=== PATIENT | female | born 1955 | race Two or more races ===

== ENCOUNTER → 2017-03-31 | Outpatient (CLI) | payer OTHER ==
[2017-03-31 15:49] LABS: Basophils # (auto) 0.1 uL; Eosinophils # (auto) 0.1 uL; Eosinophils % (auto) 2.3 % (0.0-7.0); Hemoglobin 8.8 g/dL (12.2-16.2); White Blood Cell 5.4 10^3/uL (4.4-10.8)
[2017-03-31 15:51] LABS: Hematocrit 28.4 % (36.0-46.0); Lymphocytes # (auto) 2.2 uL; Lymphocytes % (auto) 39.6 % (10.0-50.0); Mean Corpuscular Hemoglobin 23.4 pg (28.0-32.0); Mean Corpuscular Volume 75.3 fL (80.0-100.0); Monocytes # (auto) 0.6 uL; Monocytes % (auto) 11.8 % (0.0-12.0); Neutrophils # (auto) 2.5 uL; Neutrophils % (auto) 45.3 % (37.0-80.0); Nucleated Red Blood Cells % 0.2 %; Platelet Count (auto) 310 10^3/uL (140-450); Red Blood Cells 3.78 10^6/uL (4.0-5.20); Red Cell Distribution Width 17.8 % (11.8-14.3)
== END | disposition home or self-care (01) ==
LOC: LAB 15:20
PROVIDERS: ATTEND Internal Medicine
DX: D64.9 Anemia, unspecified (principal)
CPT/HCPCS: 36415; 85025

== ENCOUNTER → 2017-04-01 | Outpatient (CLI) | payer OTHER ==
[2017-04-01 12:23] LABS: Hematocrit 30.7 % (36.0-46.0); Hemoglobin 9.5 g/dL (12.2-16.2); Mean Corpuscular Hemoglobin 23.4 pg (28.0-32.0); Mean Corpuscular Hgb Conc. 30.8 g/dL (32.0-36.0); Mean Corpuscular Volume 75.7 fL (80.0-100.0); Platelet Count (auto) 293 10^3/uL (140-450); Red Blood Cells 4.05 10^6/uL (4.0-5.20); Red Cell Distribution Width 17.8 % (11.8-14.3); White Blood Cell 5.4 10^3/uL (4.4-10.8)
[2017-04-01 12:29] LABS: Band Neutrophils % (manual) 0; Basophils % (manual) 0 (0.0-2.0); Blast Cells 0; Ferritin 5.3 ng/mL (10-322); Free T4 (Free Thyroxine) 1.35 ng/dL (0.89-1.76); Metamyelocytes % 0; Myelocytes % 0; Promyelocytes % 0; Reactive Lymphocytes 0
[2017-04-01 12:48] LABS: Albumin 3.1 g/dL (3.4-5.0); Bilirubin, Total 0.4 mg/dL (0.2-1.0); Calcium 8.4 mg/dL (8.5-10.1); Potassium 4.3 mmol/L (3.5-5.1); Total Protein 6.5 g/dL (6.4-8.2)
[2017-04-01 13:10] LABS: % Iron Saturation 3.7 % (15-50)
[2017-04-01 14:21] LABS: Eosinophils % (manual) 1 (0-7); Lymphocytes % (manual) 34 (10.0-50.0); Monocytes % (manual) 11 (0-12)
[2017-04-02 09:35] LABS: Folate (Folic Acid) 9.04 ng/mL (5.38-24)
== END | disposition home or self-care (01) ==
LOC: LAB 11:17
PROVIDERS: ATTEND Internal Medicine
DX: D64.9 Anemia, unspecified (principal); E11.9 Type 2 diabetes mellitus without complications
CPT/HCPCS: 36415; 80053; 82607; 82668; 82728; 82746; 83010; 83540; 83550; 83615; 84436; 84439; 84443; 85007; 85027; 85045; 85652; 86038; 86880

== ENCOUNTER → 2017-05-13 | Outpatient (CLI) | payer OTHER ==
[2017-05-13 14:40] LABS: Nucleated Red Blood Cells % 0.1 %
[2017-05-13 14:41] LABS: Basophils # (auto) 0 uL; Basophils % (auto) 0.8 % (0.0-2.0); Eosinophils # (auto) 0 uL; Eosinophils % (auto) 0.6 % (0.0-7.0); Hematocrit 30.6 % (36.0-46.0); Hemoglobin 9.6 g/dL (12.2-16.2); Lymphocytes # (auto) 1.8 uL; Lymphocytes % (auto) 36.3 % (10.0-50.0); Mean Corpuscular Hemoglobin 24.4 pg (28.0-32.0); Mean Corpuscular Hgb Conc. 31.4 g/dL (32.0-36.0); Mean Corpuscular Volume 77.9 fL (80.0-100.0); Monocytes # (auto) 0.5 uL; Monocytes % (auto) 9.3 % (0.0-12.0); Neutrophils # (auto) 2.6 uL; Platelet Count (auto) 243 10^3/uL (140-450); Red Blood Cells 3.93 10^6/uL (4.0-5.20); Red Cell Distribution Width 24.9 % (11.8-14.3)
[2017-05-13 15:08] LABS: % Iron Saturation 73.3 % (15-50)
== END | disposition home or self-care (01) ==
LOC: LAB 14:12
PROVIDERS: ATTEND Internal Medicine
DX: D50.9 Iron deficiency anemia, unspecified (principal)
CPT/HCPCS: 36415; 82607; 83540; 83550; 85025

== ENCOUNTER → 2017-06-10 | Outpatient (CLI) | payer OTHER ==
[2017-06-10 14:50] LABS: Basophils # (auto) 0 uL; Basophils % (auto) 0.7 % (0.0-2.0); Eosinophils # (auto) 0.1 uL; Hematocrit 36.1 % (36.0-46.0); Hemoglobin 11.6 g/dL (12.2-16.2); Lymphocytes % (auto) 36.1 % (10.0-50.0); Mean Corpuscular Hemoglobin 27.2 pg (28.0-32.0); Mean Corpuscular Hgb Conc. 32.1 g/dL (32.0-36.0); Mean Corpuscular Volume 84.8 fL (80.0-100.0); Monocytes # (auto) 0.5 uL; Monocytes % (auto) 8.6 % (0.0-12.0); Neutrophils # (auto) 2.9 uL; Neutrophils % (auto) 53.6 % (37.0-80.0); Nucleated Red Blood Cells % 0.2 %; Platelet Count (auto) 245 10^3/uL (140-450); Red Blood Cells 4.26 10^6/uL (4.0-5.20); White Blood Cell 5.4 10^3/uL (4.4-10.8)
[2017-06-10 14:51] LABS: Red Cell Distribution Width 27.2 % (11.8-14.3)
[2017-06-10 15:17] LABS: % Iron Saturation 22.4 % (15-50)
[2017-06-10 15:25] LABS: Ferritin 216.5 ng/mL (10-322)
== END | disposition home or self-care (01) ==
LOC: LAB 14:40
PROVIDERS: ATTEND Internal Medicine
DX: D50.9 Iron deficiency anemia, unspecified (principal); E11.9 Type 2 diabetes mellitus without complications
CPT/HCPCS: 36415; 82607; 82728; 83540; 83550; 85025

== ENCOUNTER → 2017-08-09 | Outpatient (CLI) | payer OTHER ==
[2017-08-09 14:04] LABS: Basophils # (auto) 0 uL; Basophils % (auto) 1.1 % (0.0-2.0); Eosinophils # (auto) 0 uL; Eosinophils % (auto) 1.1 % (0.0-7.0); Hematocrit 37.7 % (36.0-46.0); Hemoglobin 12.2 g/dL (12.2-16.2); Lymphocytes # (auto) 1.6 uL; Lymphocytes % (auto) 38.9 % (10.0-50.0); Mean Corpuscular Hemoglobin 29.8 pg (28.0-32.0); Mean Corpuscular Hgb Conc. 32.3 g/dL (32.0-36.0); Mean Corpuscular Volume 92.2 fL (80.0-100.0); Monocytes # (auto) 0.4 uL; Monocytes % (auto) 8.7 % (0.0-12.0); Neutrophils % (auto) 50.2 % (37.0-80.0); Nucleated Red Blood Cells % 0.1 %; Platelet Count (auto) 231 10^3/uL (140-450); Red Blood Cells 4.09 10^6/uL (4.0-5.20); Red Cell Distribution Width 15.7 % (11.8-14.3); White Blood Cell 4.1 10^3/uL (4.4-10.8)
[2017-08-09 15:11] LABS: % Iron Saturation 15.2 % (15-50)
== END | disposition home or self-care (01) ==
LOC: LAB 13:42
PROVIDERS: ATTEND Internal Medicine
DX: D50.9 Iron deficiency anemia, unspecified (principal); E11.9 Type 2 diabetes mellitus without complications
CPT/HCPCS: 36415; 82607; 83540; 83550; 85025

== ENCOUNTER → 2017-12-07 | Outpatient (CLI) | payer OTHER ==
[2017-12-07 09:47] LABS: Basophils # (auto) 0 uL; Basophils % (auto) 0.6 % (0.0-2.0); Eosinophils # (auto) 0 uL; Eosinophils % (auto) 0.4 % (0.0-7.0); Hematocrit 37.1 % (36.0-46.0); Hemoglobin 11.9 g/dL (12.2-16.2); Lymphocytes # (auto) 1.4 uL; Mean Corpuscular Hemoglobin 28.5 pg (28.0-32.0); Monocytes # (auto) 0.4 uL; Monocytes % (auto) 7.3 % (0.0-12.0); Neutrophils # (auto) 3.8 uL; Neutrophils % (auto) 66.7 % (37.0-80.0); Platelet Count (auto) 271 10^3/uL (140-450); Red Blood Cells 4.17 10^6/uL (4.0-5.20); White Blood Cell 5.7 10^3/uL (4.4-10.8)
[2017-12-07 10:06] LABS: Potassium 4.9 mmol/L (3.5-5.1)
[2017-12-07 10:20] LABS: Albumin 3.6 g/dL (3.4-5.0); BUN/Creatinine Ratio 23.8
[2017-12-07 10:35] LABS: Bilirubin, Total 0.5 mg/dL (0.2-1.0); Total Protein 7.2 g/dL (6.4-8.2)
[2017-12-07 19:45] LABS: % Iron Saturation 22.7 % (15-50)
== END | disposition home or self-care (01) ==
LOC: LAB 09:20
PROVIDERS: ATTEND Internal Medicine
DX: D50.9 Iron deficiency anemia, unspecified (principal)
CPT/HCPCS: 36415; 80053; 82607; 83540; 83550; 85025

== ENCOUNTER 2017-12-30 13:39 | Emergency (ER) | payer OTHER ==
[~2017-12-30] VITALS: Ht 170.2 cm; Wt 70.3 kg
[2017-12-30 14:30] VITALS: BP 141/95
[2017-12-30 14:34] LABS: Basophils # (auto) 0 uL; Basophils % (auto) 0.9 % (0.0-2.0); Eosinophils # (auto) 0 uL; Eosinophils % (auto) 0.4 % (0.0-7.0); Hematocrit 38.8 % (36.0-46.0); Hemoglobin 12.8 g/dL (12.2-16.2); Lymphocytes # (auto) 1.4 uL; Lymphocytes % (auto) 33.2 % (10.0-50.0); Mean Corpuscular Hemoglobin 28.7 pg (28.0-32.0); Mean Corpuscular Hgb Conc. 33.1 g/dL (32.0-36.0); Mean Corpuscular Volume 86.9 fL (80.0-100.0); Monocytes # (auto) 0.3 uL; Monocytes % (auto) 7.8 % (0.0-12.0); Neutrophils # (auto) 2.4 uL; Neutrophils % (auto) 57.7 % (37.0-80.0); Nucleated Red Blood Cells % 0.1 %; Platelet Count (auto) 320 10^3/uL (140-450); Red Blood Cells 4.47 10^6/uL (4.0-5.20); Red Cell Distribution Width 15.5 % (11.8-14.3); White Blood Cell 4.2 10^3/uL (4.4-10.8)
[2017-12-30 14:52] LABS: Albumin 3.8 g/dL (3.4-5.0); BUN/Creatinine Ratio 18.9; Calcium 9.4 mg/dL (8.5-10.1); Potassium 3.1 mmol/L (3.5-5.1)
[2017-12-30 14:55] LABS: Bilirubin, Total 0.9 mg/dL (0.2-1.0)
[2017-12-30] MEDS ORDERED: POTASSIUM EFFERVESENT TAB 25 MEQ ONE (15:23)
[2017-12-30] MEDS ORDERED: FLUoxetine HCL 20 MG CAP ONE (15:23)
[2017-12-30] MEDS ORDERED: FLUoxetine HCL 20 MG CAP PO ONE (15:30)
[2017-12-30] MEDS ORDERED: POTASSIUM EFFERVESENT TAB 25 MEQ PO ONE (15:30)
== END 2017-12-30 15:21 | disposition home or self-care (01) ==
LOC: ER 13:39
DX: R04.0 Epistaxis (principal); E11.9 Type 2 diabetes mellitus without complications; E07.89 Other specified disorders of thyroid; Z90.710 Acquired absence of both cervix and uterus; Z98.51 Tubal ligation status
CPT/HCPCS: 30901; 36415; 80053; 85025; 94761

== ENCOUNTER → 2018-01-19 | Outpatient (CLI) | payer OTHER ==
[2018-01-19 11:33] LABS: Basophils # (auto) 0 uL; Basophils % (auto) 0.8 % (0.0-2.0); Eosinophils # (auto) 0 uL; Eosinophils % (auto) 1.3 % (0.0-7.0); Hematocrit 35.7 % (36.0-46.0); Hemoglobin 11.3 g/dL (12.2-16.2); Lymphocytes # (auto) 1.3 uL; Lymphocytes % (auto) 44.3 % (10.0-50.0); Mean Corpuscular Hemoglobin 27.7 pg (28.0-32.0); Mean Corpuscular Hgb Conc. 31.7 g/dL (32.0-36.0); Mean Corpuscular Volume 87.3 fL (80.0-100.0); Monocytes # (auto) 0.3 uL; Neutrophils # (auto) 1.2 uL; Neutrophils % (auto) 41.6 % (37.0-80.0); Nucleated Red Blood Cells % 0.1 %; Platelet Count (auto) 268 10^3/uL (140-450); Red Blood Cells 4.09 10^6/uL (4.0-5.20); Red Cell Distribution Width 16.1 % (11.8-14.3); White Blood Cell 2.8 10^3/uL (4.4-10.8)
[2018-01-19 11:57] LABS: Urine Bacteria FEW /hpf (None Seen); Urine Blood Negative /uL (Negative); Urine Hyaline Cast FEW /lpf (0 - 2); Urine Mucus FEW (None Seen); Urine Specific Gravity 1.026 (1.001-1.035); Urine WBC 14 /hpf (0 - 5)
[2018-01-19 12:49] LABS: Albumin 3.7 g/dL (3.4-5.0); Calcium 9.5 mg/dL (8.5-10.1); Potassium 3.4 mmol/L (3.5-5.1)
[2018-01-19 13:23] LABS: BUN/Creatinine Ratio 16.3; Bilirubin, Total 0.3 mg/dL (0.2-1.0); Total Protein 7.4 g/dL (6.4-8.2)
== END | disposition home or self-care (01) ==
LOC: LAB 10:57
PROVIDERS: ATTEND Nurse Practitioner
DX: E78.5 Hyperlipidemia, unspecified (principal); E61.1 Iron deficiency; E53.8 Deficiency of other specified B group vitamins
CPT/HCPCS: 36415; 80053; 80061; 81001; 82607; 82746; 83540; 84443; 85025

== ENCOUNTER → 2018-03-08 | Outpatient (CLI) | payer OTHER ==
[2018-03-08 10:44] LABS: Basophils # (auto) 0 uL; Eosinophils # (auto) 0 uL; Hemoglobin 9.3 g/dL (12.2-16.2); Monocytes # (auto) 0.4 uL; Monocytes % (auto) 12.5 % (0.0-12.0); Nucleated Red Blood Cells % 0.1 %; Platelet Count (auto) 280 10^3/uL (140-450); Red Blood Cells 3.77 10^6/uL (4.0-5.20); White Blood Cell 2.9 10^3/uL (4.4-10.8)
[2018-03-08 10:46] LABS: Eosinophils % (auto) 0.6 % (0.0-7.0); Hematocrit 29.8 % (36.0-46.0); Lymphocytes % (auto) 32.5 % (10.0-50.0); Mean Corpuscular Hemoglobin 24.7 pg (28.0-32.0); Mean Corpuscular Hgb Conc. 31.2 g/dL (32.0-36.0); Mean Corpuscular Volume 79.2 fL (80.0-100.0); Neutrophils # (auto) 1.6 uL; Neutrophils % (auto) 53.4 % (37.0-80.0)
[2018-03-08 10:50] LABS: Albumin 3.6 g/dL (3.4-5.0); Calcium 8.6 mg/dL (8.5-10.1); Potassium 4.2 mmol/L (3.5-5.1)
[2018-03-08 10:55] LABS: % Iron Saturation 4.5 % (15-50); BUN/Creatinine Ratio 24.1; Bilirubin, Total 0.3 mg/dL (0.2-1.0); Total Protein 6.7 g/dL (6.4-8.2)
== END | disposition home or self-care (01) ==
LOC: LAB 08:58
PROVIDERS: ATTEND Internal Medicine
DX: D50.9 Iron deficiency anemia, unspecified (principal)
CPT/HCPCS: 36415; 80053; 82607; 83540; 83550; 83615; 85025

== ENCOUNTER → 2018-04-04 | Outpatient (CLI) | payer OTHER ==
[2018-04-04 14:49] LABS: Basophils # (auto) 0 uL; Eosinophils # (auto) 0 uL; Hemoglobin 9.9 g/dL (12.2-16.2); Lymphocytes % (auto) 32.3 % (10.0-50.0); Monocytes # (auto) 0.4 uL; Neutrophils # (auto) 1.5 uL; Nucleated Red Blood Cells % 0.1 %
[2018-04-04 14:52] LABS: Basophils % (auto) 0.9 % (0.0-2.0); Eosinophils % (auto) 1.3 % (0.0-7.0); Hematocrit 31.3 % (36.0-46.0); Mean Corpuscular Hemoglobin 23.8 pg (28.0-32.0); Mean Corpuscular Hgb Conc. 31.7 g/dL (32.0-36.0); Mean Corpuscular Volume 75.2 fL (80.0-100.0); Monocytes % (auto) 14.9 % (0.0-12.0); Neutrophils % (auto) 50.6 % (37.0-80.0); Platelet Count (auto) 234 10^3/uL (140-450); Red Blood Cells 4.16 10^6/uL (4.0-5.20); Red Cell Distribution Width 19.7 % (11.8-14.3)
== END | disposition home or self-care (01) ==
LOC: LAB 14:22
PROVIDERS: ATTEND Internal Medicine
DX: D50.9 Iron deficiency anemia, unspecified (principal)
CPT/HCPCS: 36415; 85025

== ENCOUNTER → 2018-04-05 | Outpatient (CLI) | payer OTHER | END | disposition home or self-care (01) | LOC: LAB 14:40 | PROVIDERS: ATTEND Internal Medicine | DX: D72.819 Decreased white blood cell count, unspecified (principal); D64.9 Anemia, unspecified; Z98.84 Bariatric surgery status | CPT/HCPCS: 81206; 88185; 88291; 88341 ==

== ENCOUNTER → 2018-05-26 | Outpatient (CLI) | payer OTHER ==
[2018-05-26 15:30] LABS: Basophils # (auto) 0 uL; Basophils % (auto) 0.8 % (0.0-2.0); Eosinophils # (auto) 0 uL; Hemoglobin 9.9 g/dL (12.2-16.2); Lymphocytes # (auto) 0.9 uL; Monocytes # (auto) 0.3 uL
[2018-05-26 15:33] LABS: Eosinophils % (auto) 0.2 % (0.0-7.0); Hematocrit 31.5 % (36.0-46.0); Lymphocytes % (auto) 29.4 % (10.0-50.0); Mean Corpuscular Hemoglobin 24.8 pg (28.0-32.0); Mean Corpuscular Hgb Conc. 31.5 g/dL (32.0-36.0); Monocytes % (auto) 10.2 % (0.0-12.0); Neutrophils # (auto) 1.9 uL; Neutrophils % (auto) 59.4 % (37.0-80.0); Nucleated Red Blood Cells % 0.1 %; Platelet Count (auto) 227 10^3/uL (140-450); Red Blood Cells 3.99 10^6/uL (4.0-5.20); White Blood Cell 3.2 10^3/uL (4.4-10.8)
[2018-05-26 15:39] LABS: % Iron Saturation 69.5 % (15-50)
[2018-05-26 15:52] LABS: Red Cell Distribution Width 25.1 % (11.8-14.3)
== END | disposition home or self-care (01) ==
LOC: LAB 14:44
PROVIDERS: ATTEND Internal Medicine
DX: D50.9 Iron deficiency anemia, unspecified (principal)
CPT/HCPCS: 36415; 82607; 83540; 83550; 85025

== ENCOUNTER 2018-07-29 10:39 | Inpatient (IN) | payer OTHER ==
[~2018-07-29] VITALS: Ht 167.6 cm; Wt 62.0 kg
[2018-07-29 11:56] LABS: Basophils # (auto) 0 uL; Basophils % (auto) 0.5 % (0.0-2.0); Eosinophils # (auto) 0 uL; Hematocrit 46.8 % (36.0-46.0); Hemoglobin 15.5 g/dL (12.2-16.2); Lymphocytes # (auto) 0.6 uL; Lymphocytes % (auto) 8.1 % (10.0-50.0); Mean Corpuscular Hemoglobin 30.2 pg (28.0-32.0); Mean Corpuscular Volume 91.5 fL (80.0-100.0); Monocytes # (auto) 0.4 uL; Monocytes % (auto) 5.1 % (0.0-12.0); Neutrophils # (auto) 6.8 uL; Neutrophils % (auto) 86.3 % (37.0-80.0); Platelet Count (auto) 306 10^3/uL (140-450); Red Blood Cells 5.12 10^6/uL (4.0-5.20); Red Cell Distribution Width 18.3 % (11.8-14.3); White Blood Cell 7.9 10^3/uL (4.4-10.8)
[2018-07-29] MEDS ORDERED: SODIUM CHLORIDE 0.9% 1,000 ML IV ONE (12:05)
[2018-07-29 12:06] LABS: Albumin 4.2 g/dL (3.4-5.0); Calcium 9.9 mg/dL (8.5-10.1)
[2018-07-29 12:11] LABS: BUN/Creatinine Ratio 12.1; Bilirubin, Total 0.6 mg/dL (0.2-1.0); Total Protein 8.2 g/dL (6.4-8.2)
[2018-07-29] MEDS ORDERED: ASPirin 81 mg TAB PO ONE (12:15)
[2018-07-29] MEDS ORDERED: LORazepam 2MG/ML-1ML VIAL ONE (12:17)
[2018-07-29] MEDS ORDERED: MORPHINE SULF INJ 2 MG/ML SYRINGE 1ML IV ONE (12:30)
[2018-07-29] MEDS ORDERED: ONDANSETRON HCL 4 MG/2 ML VIAL IV ONE (12:30)
[2018-07-29] MEDS ORDERED: LORazepam 2MG/ML-1ML VIAL IV ONE (12:30)
[2018-07-29] MEDS ORDERED: HEPARIN SODIUM (PORCINE) 5000 UNITS/ML 1ML VIAL IV ONE (12:30)
[2018-07-29] MEDS ORDERED: LIDOCAINE 2%HCL (LOCAL ANESTH.) INJ 20ML MDV ONE (14:11)
[2018-07-29] MEDS ORDERED: IODIXANOL 320MG/ML 100ML BTL IV ONE ×2 (14:11→14:28)
[2018-07-29] MEDS ORDERED: ALBUTEROL SULF 2.5 MG/0.5ML(0.5%) NEB SOLN NEB PRN (14:15)
[2018-07-29] MEDS ORDERED: MORPHINE SULF INJ 2 MG/ML SYRINGE 1ML IV PRN (14:15)
[2018-07-29] MEDS ORDERED: NITROGLYCERIN 0.4 MG SL TAB SL PRN (14:15)
[2018-07-29] MEDS ORDERED: PROMETHAZINE HCL 25 MG/ML 1ML IV PRN (14:15)
[2018-07-29] MEDS ORDERED: LACTULOSE 20Gm/30ML SOLN PO PRN (14:15)
[2018-07-29] MEDS ORDERED: HYDROcodone-ACET 5/325MG TAB PO PRN (14:15)
[2018-07-29] MEDS ORDERED: TEMAZEPAM 15 MG CAP PO PRN (14:15)
[2018-07-29] MEDS ORDERED: DEXTROSE (50%) 50ML SYRG IV PRN (14:15)
[2018-07-29] MEDS ORDERED: SODIUM CHL 0.9% 0 ML ONE (14:17)
[2018-07-29] MEDS ORDERED: ANGIOMAX 250 MG VIAL IV ONE (14:17)
[2018-07-29] MEDS ORDERED: MIDAZOLAM HCL 1MG/1ML-2 ML VIAL ONE (14:17)
[2018-07-29] MEDS ORDERED: fentaNYL CITRATE 100 MCG/2 ML VL ONE (14:17)
[2018-07-29] MEDS ORDERED: diphenhdrAMINE HCL 50 MG/1 ML VL ONE (14:37)
[2018-07-29] MEDS: SODIUM CHLORIDE 0.9% 1,000 ML IV SCH (15:40)
--- NOTE | 2018-07-29 15:40 | NUR ---
Patient brought to floor following procedure Report received from Rosette. JUAN MIGUEL FULTON brought to bed 274A following procedure. Patient transferred to unit, connected to cafeteria monitor #[id number] and oxygen. Left groin dressing clean, dry, and intact. Soft to palpation. Pedal pulses present. All questions and concerns addressed, patient verbalized understanding. Addendum: 07/29/18 at 1713 by FRAN YO RN Correction- Right groin
--- NOTE | 2018-07-29 16:55 | NUR ---
RECEIVED CALL FOR PATIENT RHYTHM CHANGE ACCELERATED JUNCTIONAL RHYTHM. MD GUTIERREZ PAGED, AWAITING CALL BACK. PATIENT NOW BACK IN SINUS RHYTHM. WILL CONTINUE CARE.
[2018-07-29 17:00] VITALS: BP 119/82
[2018-07-29] MEDS: InsuLIN REG 1unit/0.01ml Soln (100units/ml) SC SCH ×2 (17:00→21:44)
[2018-07-29] MEDS: ACCU-CHEK COMFORT CURVE STRIP VI SCH ×2 (17:11→21:48)
--- NOTE | 2018-07-29 17:30 | NUR ---
MD GUTIERREZ RETURN PAGE- NO NEW ORDERS. UPDATED ON PATIENT STATUS, WILL CONTINUE CARE.
[2018-07-29] MEDS: MORPHINE SULFATE 4 MG/ML SYR/VIAL IV PRN (18:49)
--- NOTE | 2018-07-29 18:50 | NUR ---
PATIENT SWEATING, DENIES CHEST PAIN. BLOOD GLUCOSE CHECKED, WITHIN NORMAL RANGE. EKG DONE AND PLACED IN CHART. WILL CONTINUE CARE.
--- NOTE | 2018-07-29 19:00 | NUR ---
PATIENT GIVEN MORPHINE FOR BACK PAIN PER ORDERS STATES SHE IS FEELING BETTER, PATIENT NOW RESTING IN BED. WILL ENDORSE CARE.
--- NOTE | 2018-07-29 19:08 | NUR ---
PRN ASSESSMENT DONE PT IS SUPER ANXIOUS AND WANTS NOTHING TO DO WITH BREATHING MEDS. NO RESP DISTRESS NOTED
--- NOTE | 2018-07-29 19:17 | NUR ---
CLOSING NOTE ENDORSED CARE TO REGISTERED NURSE AMBULATORY RN. PATIENT IN BED LOW LOCK POSITION, CALL LIGHT IN REACH. NO S/S OF DISTRESS AT THIS TIME.
[2018-07-29] MEDS: METOPROLOL TARTRATE 25 MG TAB PO SCH (21:46)
[2018-07-29] MEDS: LORazepam 0.5 MG TAB PO PRN (21:52)
[2018-07-29 22:00] VITALS: BP 110/75
[2018-07-29] MEDS ORDERED: ATORVASTATIN 20 MG TAB PO SCH (22:00)
[2018-07-30] MEDS: SODIUM CHLORIDE 0.9% 1,000 ML IV SCH (03:24)
[2018-07-30] MEDS: MORPHINE SULFATE 4 MG/ML SYR/VIAL IV PRN ×2 (03:26→10:40)
[2018-07-30 05:00] VITALS: BP 130/88
[2018-07-30 05:58] LABS: Basophils # (auto) 0 uL; Basophils % (auto) 0.3 % (0.0-2.0); Eosinophils # (auto) 0 uL; Hematocrit 42.4 % (36.0-46.0); Hemoglobin 14.3 g/dL (12.2-16.2); Lymphocytes # (auto) 1.1 uL; Lymphocytes % (auto) 17.9 % (10.0-50.0); Mean Corpuscular Hemoglobin 30.9 pg (28.0-32.0); Mean Corpuscular Hgb Conc. 33.7 g/dL (32.0-36.0); Mean Corpuscular Volume 91.8 fL (80.0-100.0); Monocytes # (auto) 0.6 uL; Monocytes % (auto) 9.9 % (0.0-12.0); Neutrophils # (auto) 4.6 uL; Neutrophils % (auto) 71.9 % (37.0-80.0); Platelet Count (auto) 257 10^3/uL (140-450); Red Blood Cells 4.61 10^6/uL (4.0-5.20); Red Cell Distribution Width 17.7 % (11.8-14.3); White Blood Cell 6.4 10^3/uL (4.4-10.8)
[2018-07-30 06:11] LABS: Albumin 3.6 g/dL (3.4-5.0); Calcium 9.4 mg/dL (8.5-10.1); Potassium 4.1 mmol/L (3.5-5.1)
[2018-07-30 06:16] LABS: BUN/Creatinine Ratio 24.3; Bilirubin, Total 0.9 mg/dL (0.2-1.0)
[2018-07-30] MEDS: ACCU-CHEK COMFORT CURVE STRIP VI SCH ×2 (06:22→11:30)
[2018-07-30] MEDS: InsuLIN REG 1unit/0.01ml Soln (100units/ml) SC SCH ×2 (06:22→11:30)
--- NOTE | 2018-07-30 06:25 | NUR ---
Called by ekg monitor tech for critical troponin 1.390, result is trending down, previous result was 2.470 and 2.120.
--- NOTE | 2018-07-30 07:15 | NUR ---
Opening Shift Note RECEIVED REPORT FROM NOC RN. Assumed care of patient, awake and alert. PATIENT ON OXYGEN AT 2 LPM VIA NASAL CANNULA WITH no S/S of distress/SOB or pain. BED IN LOWEST, LOCKED POSITION WITH SIDERAILS UP x2. Instructed on POC and to call for assist PRN, will continue to monitor for changes Q1hr and PRN.
--- NOTE | 2018-07-30 07:40 | NUR ---
Patient in bed, awake, weakness noted, oriented x4. On O2 at 2 LPM via nasal cannula. No acute distress noted.
[2018-07-30 08:00] VITALS: BP 120/81
[2018-07-30] MEDS: METOPROLOL TARTRATE 25 MG TAB PO SCH (09:47)
[2018-07-30] MEDS ORDERED: NITROGLYCERIN 0.2MG/HR TOPICAL PATCH TD SCH (10:00)
[2018-07-30] MEDS ORDERED: ASPirin 81 mg TAB PO SCH (10:00)
--- NOTE | 2018-07-30 10:40 | NUR ---
Patient stated her back pain level at 9/10 at this time. Morphine Sulf IVP given for severe pain as ordered. Family member/ at bedside, he said he has patient's Oxycodone from home. Instructions given not to give to patient the patient's own medications. verbalized understanding.
--- NOTE | 2018-07-30 10:52 | NUR ---
Patient to be taken to Radiology via wheelchair, on O2 at 2 LPM. Patient no acute distress noted.
[2018-07-30 12:00] VITALS: BP 129/93
--- NOTE | 2018-07-30 12:00 | NUR ---
RT NOTE: PT. ASSESSED FOR PRN BREATHING TX. BREATHING TX. NOT INDICATED AT THIS TIME. PT. HR. 55, RR 16, POX 98% 2LN/C. PT. DENIES ANY SOB. PT. AWARE TO NOTIFY RN IF BREATHING TX. IS INDICATED.
[2018-07-30] MEDS: LORazepam 0.5 MG TAB PO PRN (14:22)
--- NOTE | 2018-07-30 16:00 | NUR ---
Patient not in the room. RN Bia reported that patient went to the elevator via wheelchair, with the . Patient refused to wait for the discharge papers. Patient got discharge orders put in by Dr. Quinonez at 1542.
--- NOTE | 2018-07-30 16:05 | NUR ---
Telemetry pack found on bed A, blood stains on the right bed rail and on the linen noted, used IV catheter found in the trash at the bathroom. Patient is not downstairs.
--- NOTE | 2018-07-30 16:10 | NUR ---
Informed Dr. Quinonez that patient left without waiting for the discharge papers.
== END 2018-07-30 16:00 | disposition left against medical advice (07) | DRG 392 ==
LOC: ER 10:39 → OR 1 14:52 → TELE 16:01 → TELE-WESTW 16:04
PROVIDERS: ADMIT Internal Medicine; ATTEND Internal Medicine
PROC: 4A023N7 Measurement of Cardiac Sampling and Pressure, Left Heart, Percutaneous Approach (ICD-10-PCS; principal; 2018-07-29)
PROC: B2111ZZ Fluoroscopy of Multiple Coronary Arteries using Low Osmolar Contrast (ICD-10-PCS; 2018-07-29)
PROC: B2151ZZ Fluoroscopy of Left Heart using Low Osmolar Contrast (ICD-10-PCS; 2018-07-29)
DX: K21.9 Gastro-esophageal reflux disease without esophagitis (principal); G89.29 Other chronic pain; F41.9 Anxiety disorder, unspecified; E03.9 Hypothyroidism, unspecified; E11.9 Type 2 diabetes mellitus without complications; I25.10 Atherosclerotic heart disease of native coronary artery without angina pectoris; Z82.49 Family history of ischemic heart disease and other diseases of the circulatory system; Z98.84 Bariatric surgery status; Z90.710 Acquired absence of both cervix and uterus; Z98.51 Tubal ligation status; Z87.891 Personal history of nicotine dependence
CPT/HCPCS: 36415; 71045; 71250; 80053; 80061; 82550; 82962; 83036; 84484; 85025; 85379; 85652; 86141; 93005; 93458; 96361; 96374; 96375; 99152; G0378; J1815; J2250; J2405; Q9967

== ENCOUNTER → 2018-08-08 | Outpatient (CLI) | payer OTHER ==
[2018-08-08 11:06] LABS: % Iron Saturation 18.1 % (15-50)
== END | disposition home or self-care (01) ==
LOC: LAB 09:26
PROVIDERS: ATTEND Internal Medicine
DX: D50.9 Iron deficiency anemia, unspecified (principal)
CPT/HCPCS: 82607; 83540; 83550

== ENCOUNTER 2019-03-10 04:52 | Inpatient (IN) | payer OTHER ==
[~2019-03-10] VITALS: Ht 170.2 cm; Wt 63.3 kg
[2019-03-10] MEDS ORDERED: MORPHINE SULFATE 4 MG/ML SYR/VIAL IV ONE (08:15)
[2019-03-10] MEDS ORDERED: ONDANSETRON HCL 4 MG/2 ML VIAL IV ONE (08:15)
[2019-03-10 08:40] LABS: Basophils # (auto) 0 uL; Basophils % (auto) 0.3 % (0.0-2.0); Eosinophils # (auto) 0 uL; Hematocrit 40.5 % (36.0-46.0); Hemoglobin 13.8 g/dL (12.2-16.2); Lymphocytes # (auto) 0.8 uL; Lymphocytes % (auto) 11.8 % (10.0-50.0); Mean Corpuscular Hemoglobin 33.2 pg (28.0-32.0); Mean Corpuscular Hgb Conc. 34.1 g/dL (32.0-36.0); Mean Corpuscular Volume 97.3 fL (80.0-100.0); Monocytes # (auto) 0.3 uL; Monocytes % (auto) 4.7 % (0.0-12.0); Neutrophils # (auto) 5.5 uL; Neutrophils % (auto) 83.2 % (37.0-80.0); Nucleated Red Blood Cells % 0.1 %; Platelet Count (auto) 248 10^3/uL (140-450); Red Blood Cells 4.16 10^6/uL (4.0-5.20); Red Cell Distribution Width 14.6 % (11.8-14.3); White Blood Cell 6.6 10^3/uL (4.4-10.8)
[2019-03-10 09:00] LABS: Albumin 4.4 g/dL (3.4-5.0); Calcium 9.2 mg/dL (8.5-10.1); Potassium 3.7 mmol/L (3.5-5.1)
[2019-03-10] MEDS ORDERED: HYDROcodone-ACET 10/325MG TAB PO PRN ×2 (09:00→09:45)
[2019-03-10 09:05] LABS: BUN/Creatinine Ratio 13.6; Bilirubin, Total 0.6 mg/dL (0.2-1.0); Total Protein 8.2 g/dL (6.4-8.2)
[2019-03-10] MEDS ORDERED: MORPHINE SULF INJ 2 MG/ML SYRINGE 1ML IV PRN (09:15)
[2019-03-10] MEDS ORDERED: DEXTROSE (50%) 50ML SYRG IV PRN (09:15)
[2019-03-10] MEDS ORDERED: LACTULOSE 20Gm/30ML SOLN PO PRN (09:15)
[2019-03-10] MEDS ORDERED: ACETAMINOPHEN 500 MG TAB PO PRN (09:15)
[2019-03-10] MEDS ORDERED: NITROGLYCERIN 0.4 MG SL TAB SL PRN (09:15)
[2019-03-10] MEDS ORDERED: PROMETHAZINE HCL 25 MG/ML 1ML IV PRN (09:15)
[2019-03-10] MEDS: SODIUM CHLORIDE 0.9% 1,000 ML IV SCH ×2 (09:53→18:28)
[2019-03-10] MEDS: ACCU-CHEK COMFORT CURVE STRIP VI SCH ×3 (11:38→21:39)
[2019-03-10] MEDS: InsuLIN REG 1unit/0.01ml Soln (100units/ml) SC SCH ×3 (11:38→21:40)
[2019-03-10] MEDS: MORPHINE SULF INJ 2 MG/ML SYRINGE 1ML IV PRN ×3 (11:39→20:26)
[2019-03-10] MEDS: LORazepam 0.5 MG TAB PO PRN ×2 (11:39→21:01)
[2019-03-10 13:25] VITALS: BP 179/99
[2019-03-10] MEDS: GABAPENTIN 100 MG CAP PO SCH ×2 (14:28→21:01)
[2019-03-10] MEDS: BACLOFEN 10 MG TAB PO SCH ×2 (14:28→21:01)
[2019-03-10 17:36] VITALS: BP 153/111
[2019-03-10 21:48] VITALS: BP 158/103
[2019-03-10] MEDS: HYDROcodone-ACET 5/325MG TAB PO PRN (22:26)
[2019-03-11] MEDS: MORPHINE SULF INJ 2 MG/ML SYRINGE 1ML IV PRN ×5 (04:19→18:15)
[2019-03-11] MEDS: BACLOFEN 10 MG TAB PO SCH ×3 (05:29→21:14)
[2019-03-11] MEDS: GABAPENTIN 100 MG CAP PO SCH ×3 (05:29→21:15)
[2019-03-11 05:30] VITALS: BP 163/108
[2019-03-11] MEDS: SODIUM CHLORIDE 0.9% 1,000 ML IV SCH (05:31)
[2019-03-11] MEDS: InsuLIN REG 1unit/0.01ml Soln (100units/ml) SC SCH ×2 (06:23→11:30)
[2019-03-11] MEDS: ACCU-CHEK COMFORT CURVE STRIP VI SCH ×2 (06:23→11:49)
[2019-03-11] MEDS: HYDROcodone-ACET 5/325MG TAB PO PRN ×3 (06:25→21:45)
[2019-03-11 08:00] VITALS: BP 158/109
[2019-03-11 09:00] VITALS: BP 158/109
[2019-03-11] MEDS: LORazepam 0.5 MG TAB PO PRN (10:16)
[2019-03-11] MEDS: FLUoxetine HCL 20 MG CAP PO SCH (10:16)
[2019-03-11] MEDS ORDERED: hydrALAZINE HCL 20 MG/ML VL IV PRN (12:45)
[2019-03-11] MEDS ORDERED: LISINOPRIL 10 MG TAB PO ONE (12:45)
[2019-03-11 13:00] VITALS: BP 165/96
[2019-03-11 17:00] VITALS: BP 146/97
[2019-03-11 22:00] VITALS: BP 129/86
[2019-03-12] MEDS: MORPHINE SULF INJ 2 MG/ML SYRINGE 1ML IV PRN ×4 (04:45→19:32)
[2019-03-12 05:00] VITALS: BP 113/58
[2019-03-12 05:16] VITALS: BP 158/100
[2019-03-12] MEDS: BACLOFEN 10 MG TAB PO SCH ×3 (06:29→21:59)
[2019-03-12] MEDS: GABAPENTIN 100 MG CAP PO SCH ×3 (06:29→22:00)
[2019-03-12 07:34] LABS: Basophils # (auto) 0 uL; Basophils % (auto) 0.7 % (0.0-2.0); Eosinophils # (auto) 0 uL; Eosinophils % (auto) 0.6 % (0.0-7.0); Hematocrit 41.4 % (36.0-46.0); Hemoglobin 13.9 g/dL (12.2-16.2); Lymphocytes # (auto) 1.4 uL; Mean Corpuscular Hemoglobin 33.1 pg (28.0-32.0); Mean Corpuscular Hgb Conc. 33.4 g/dL (32.0-36.0); Monocytes # (auto) 0.6 uL; Monocytes % (auto) 11.8 % (0.0-12.0); Neutrophils # (auto) 2.9 uL; Neutrophils % (auto) 57.9 % (37.0-80.0); Nucleated Red Blood Cells % 0.1 %; Platelet Count (auto) 195 10^3/uL (140-450); Red Blood Cells 4.19 10^6/uL (4.0-5.20); Red Cell Distribution Width 14.1 % (11.8-14.3)
[2019-03-12 08:00] VITALS: BP 158/94
[2019-03-12 08:12] LABS: Potassium 3.6 mmol/L (3.5-5.1)
[2019-03-12 08:20] LABS: BUN/Creatinine Ratio 22.6; Calcium 9.4 mg/dL (8.5-10.1)
[2019-03-12] MEDS: FLUoxetine HCL 20 MG CAP PO SCH (09:44)
[2019-03-12] MEDS: LISINOPRIL 10 MG TAB PO SCH (09:45)
[2019-03-12 13:00] VITALS: BP 126/77
[2019-03-12] MEDS: HYDROcodone-ACET 5/325MG TAB PO PRN (13:00)
[2019-03-12] MEDS ORDERED: FLUO60TA7 PO (14:53)
[2019-03-12] MEDS ORDERED: ONDA-143 PO (14:53)
[2019-03-12] MEDS ORDERED: GABA300C10 PO (14:53)
[2019-03-12] MEDS ORDERED: DULO60CA PO (14:53)
[2019-03-12] MEDS ORDERED: BACL10TA PO (14:53)
[2019-03-12] MEDS ORDERED: QUET100T46 PO (14:53)
[2019-03-12] MEDS ORDERED: LORA0.5T12 PO (14:53)
[2019-03-12] MEDS ORDERED: LEVO125T7 PO (14:53)
[2019-03-12] MEDS ORDERED: PERCOT PO (14:53)
[2019-03-12 17:41] VITALS: BP 117/74
[2019-03-13 02:55] VITALS: BP 118/75
[2019-03-13] MEDS: MORPHINE SULF INJ 2 MG/ML SYRINGE 1ML IV PRN ×4 (03:42→17:08)
[2019-03-13 05:28] VITALS: BP 153/86
[2019-03-13] MEDS: LEVOTHYROXINE SODIUM 25 MCG TAB PO SCH (07:45)
[2019-03-13] MEDS: BACLOFEN 10 MG TAB PO SCH ×3 (07:51→22:42)
[2019-03-13] MEDS: GABAPENTIN 100 MG CAP PO SCH ×3 (07:52→22:42)
[2019-03-13 09:00] VITALS: BP 136/51
[2019-03-13] MEDS: FLUoxetine HCL 20 MG CAP PO SCH (09:46)
[2019-03-13] MEDS: LISINOPRIL 10 MG TAB PO SCH (09:47)
[2019-03-13] MEDS: HYDROcodone-ACET 10/325MG TAB PO PRN ×2 (11:15→17:52)
[2019-03-13] MEDS ORDERED: CYANOCOBALAMIN (B-12) 1000 MCG/1 ML VIAL SUBCUT ONE (12:30)
[2019-03-13 13:00] VITALS: BP 108/70
[2019-03-13 13:06] LABS: Basophils # (auto) 0 uL; Basophils % (auto) 0.8 % (0.0-2.0); Eosinophils # (auto) 0.1 uL; Hematocrit 40.9 % (36.0-46.0); Hemoglobin 13.5 g/dL (12.2-16.2); Lymphocytes # (auto) 2.1 uL; Mean Corpuscular Hemoglobin 32.5 pg (28.0-32.0); Mean Corpuscular Hgb Conc. 33.1 g/dL (32.0-36.0); Mean Corpuscular Volume 98.3 fL (80.0-100.0); Monocytes # (auto) 0.6 uL; Monocytes % (auto) 9.4 % (0.0-12.0); Neutrophils # (auto) 3.4 uL; Neutrophils % (auto) 54.8 % (37.0-80.0); Nucleated Red Blood Cells % 0.1 %; Platelet Count (auto) 264 10^3/uL (140-450); Red Blood Cells 4.16 10^6/uL (4.0-5.20); Red Cell Distribution Width 14.5 % (11.8-14.3); White Blood Cell 6.3 10^3/uL (4.4-10.8)
[2019-03-13 13:37] LABS: Calcium 9.8 mg/dL (8.5-10.1); Magnesium 2.1 mg/dL (1.6-2.6); Potassium 4.1 mmol/L (3.5-5.1)
[2019-03-13 13:41] LABS: BUN/Creatinine Ratio 29.2
[2019-03-13] MEDS ORDERED: IOHEXOL 300 MG/ML 100ML BOTTLE IJ ONE (14:17)
[2019-03-13] MEDS ORDERED: BUPIVACAINE 0.25% INJ 50ML VIAL ONE (14:23)
[2019-03-13] MEDS ORDERED: methylPREDNISolone ACETATE 80 MG/ML VL ONE (14:23)
[2019-03-13] MEDS ORDERED: LIDOCAINE 2%HCL (LOCAL ANESTH.) INJ 20ML MDV ONE (14:25)
[2019-03-13 15:12] LABS: Folate (Folic Acid) 9.9 ng/mL (5.38-24)
[2019-03-13 17:00] VITALS: BP 102/60
[2019-03-13 21:31] VITALS: BP_SYST 145; BP_SYST 87; BP_DIAS 57
[2019-03-14 05:06] LABS: RPR Non Reactive (Non Reactive)
[2019-03-14 05:42] VITALS: BP 130/62
[2019-03-14] MEDS: MORPHINE SULF INJ 2 MG/ML SYRINGE 1ML IV PRN ×4 (06:03→22:34)
[2019-03-14] MEDS: BACLOFEN 10 MG TAB PO SCH ×3 (06:05→21:43)
[2019-03-14] MEDS: GABAPENTIN 100 MG CAP PO SCH (06:05)
[2019-03-14] MEDS: LEVOTHYROXINE SODIUM 25 MCG TAB PO SCH (07:00)
[2019-03-14] MEDS: HYDROcodone-ACET 10/325MG TAB PO PRN ×2 (08:10→19:43)
[2019-03-14 09:00] VITALS: BP 120/76
[2019-03-14] MEDS: FLUoxetine HCL 20 MG CAP PO SCH (09:36)
[2019-03-14] MEDS: LISINOPRIL 10 MG TAB PO SCH (09:37)
[2019-03-14] MEDS: CYANOCOBALAMIN 500 MCG TAB PO SCH (09:37)
[2019-03-14] MEDS ORDERED: LEVOTHYROXINE SODIUM 50 MCG TAB PO ONE (10:15)
[2019-03-14] MEDS ORDERED: CYANOCOBALAMIN (B-12) 1000 MCG/1 ML VIAL SUBCUT ONE (10:15)
[2019-03-14 13:00] VITALS: BP 110/63
[2019-03-14] MEDS: GABAPENTIN 300 MG CAP PO SCH ×2 (14:12→21:43)
[2019-03-14 16:42] VITALS: BP 118/79
[2019-03-14 19:04] LABS: Urine Bacteria FEW /hpf (None Seen); Urine Blood TRACE /uL (Negative); Urine Mucus FEW (None Seen); Urine Specific Gravity 1.027 (1.001-1.035); Urine WBC 47 /hpf (0 - 5)
[2019-03-14 22:00] VITALS: BP 111/69
[2019-03-15] MEDS: HYDROcodone-ACET 10/325MG TAB PO PRN ×2 (03:28→09:32)
[2019-03-15 05:58] VITALS: BP 111/75
[2019-03-15] MEDS: LEVOTHYROXINE SODIUM 25 MCG TAB PO SCH (06:08)
[2019-03-15] MEDS: GABAPENTIN 300 MG CAP PO SCH ×2 (06:08→14:44)
[2019-03-15] MEDS: BACLOFEN 10 MG TAB PO SCH ×2 (06:08→14:44)
[2019-03-15] MEDS: MORPHINE SULF INJ 2 MG/ML SYRINGE 1ML IV PRN (06:09)
[2019-03-15] MEDS ORDERED: LEVOTHYROXINE SODIUM 50 MCG TAB PO SCH (07:00)
[2019-03-15 08:00] VITALS: BP 132/71
[2019-03-15] MEDS: FLUoxetine HCL 20 MG CAP PO SCH (09:29)
[2019-03-15] MEDS: CYANOCOBALAMIN 500 MCG TAB PO SCH (09:30)
[2019-03-15] MEDS: LISINOPRIL 10 MG TAB PO SCH (09:31)
[2019-03-15 12:00] VITALS: BP 106/65
== END 2019-03-15 15:05 | disposition home or self-care (01) | DRG 563 ==
LOC: ER 04:52 → TELE 04:53 → TELE-EAST 10:52 → EAST 03-11 13:04
PROVIDERS: ADMIT Internal Medicine; ATTEND Internal Medicine
PROC: 3E0U33Z Introduction of Anti-inflammatory into Joints, Percutaneous Approach (ICD-10-PCS; principal; 2019-03-10)
DX: S42.201A Unspecified fracture of upper end of right humerus, initial encounter for closed fracture (principal); N39.0 Urinary tract infection, site not specified; S62.101A Fracture of unspecified carpal bone, right wrist, initial encounter for closed fracture; S09.8XXA Other specified injuries of head, initial encounter; G89.4 Chronic pain syndrome; E03.9 Hypothyroidism, unspecified; F41.9 Anxiety disorder, unspecified; M25.551 Pain in right hip; I10 Essential (primary) hypertension; M54.9 Dorsalgia, unspecified; M54.5 Low back pain; D51.9 Vitamin B12 deficiency anemia, unspecified; W10.8XXA Fall (on) (from) other stairs and steps, initial encounter; E11.9 Type 2 diabetes mellitus without complications; Y93.01 Activity, walking, marching and hiking; Y92.89 Other specified places as the place of occurrence of the external cause; Y99.8 Other external cause status; Z79.899 Other long term (current) drug therapy; Z85.41 Personal history of malignant neoplasm of cervix uteri; Z98.51 Tubal ligation status; Z82.49 Family history of ischemic heart disease and other diseases of the circulatory system; Z83.3 Family history of diabetes mellitus; Z90.710 Acquired absence of both cervix and uterus; Z98.1 Arthrodesis status; Z98.84 Bariatric surgery status
CPT/HCPCS: 36415; 70450; 70486; 71045; 72125; 72192; 73020; 73030; 73070; 73110; 73502; 76000; 80048; 80053; 81001; 82607; 82746; 82962; 83036; 83735; 84443; 85025; 86592; 95819; 97116; 97530; G0378; J1815; J2405; J3490

== ENCOUNTER 2019-08-16 02:15 | Inpatient (IN) | payer OTHER ==
[~2019-08-16] VITALS: Ht 170.2 cm; Wt 68.0 kg
[~2019-08-16 02:15] MED LIST: BACL10TA PO; DULO60CA PO; FLUO60TA7 PO; GABA300C10 PO; LEVO125T7 PO; LORA0.5T12 PO; ONDA-143 PO; PERCOT PO; QUET100T46 PO
[2019-08-16 03:05] LABS: Basophils # (auto) 0 10 ^3/uL (0-0.2); Basophils % (auto) 0.5 % (0.0-2.0); Eosinophils # (auto) 0 10 ^3/uL (0-0.8); Hematocrit 46.7 % (36.0-46.0); Hemoglobin 15.5 g/dL (12.2-16.2); Lymphocytes # (auto) 0.6 10 ^3/uL (0.4-5.4); Lymphocytes % (auto) 12.4 % (10.0-50.0); Mean Corpuscular Hemoglobin 32.4 pg (28.0-32.0); Mean Corpuscular Hgb Conc. 33.1 g/dL (32.0-36.0); Monocytes # (auto) 0.3 10 ^3/uL (0-1.3); Monocytes % (auto) 6.8 % (0.0-12.0); Neutrophils # (auto) 4.1 10 ^3/uL (1.6-8.6); Neutrophils % (auto) 80.3 % (37.0-80.0); Platelet Count (auto) 187 10^3/uL (140-450); Red Blood Cells 4.77 10^6/uL (4.0-5.20); Red Cell Distribution Width 14.4 % (11.8-14.3); White Blood Cell 5.1 10^3/uL (4.4-10.8)
[2019-08-16] MEDS ORDERED: THIAMINE INJ 100 MG in SODIUM CHLORIDE 0.9% 1,000 ML IV ONE (03:15)
[2019-08-16 03:21] LABS: INR 1.03 (0.9-1.15); Partial Thromboplastin Time 25.5 sec (23.64-32.05)
[2019-08-16 03:22] LABS: Anion Gap 12 (5-15); BUN/Creatinine Ratio 26.7; Blood Urea Nitrogen 31 mg/dL (7-18); Calcium 9.5 mg/dL (8.5-10.1); Carbon Dioxide 22 mmol/L (21-32); Chloride 109 mmol/L (98-107); GFR African American 60 mL/min; GFR Non-African American 50 mL/min; Glucose 180 mg/dL (74-106); Magnesium 2.3 mg/dL (1.6-2.6); Sodium 143 mmol/L (136-145)
[2019-08-16 03:27] LABS: Alanine Aminotransferase 32 U/L (13-56); Alkaline Phosphatase 130 U/L (45-117); Aspartate Aminotransferase 87 U/L (15-37); Bilirubin, Total 0.8 mg/dL (0.2-1.0); Blood Alcohol < 3.0 mg/dL (0-5); Total Protein 8.3 g/dL (6.4-8.2)
[2019-08-16] MEDS ORDERED: THIAMINE 100mg/ml INJ (200mg/2ml VIAL) ONE (03:58)
[2019-08-16] MEDS ORDERED: DEXTROSE (50%) 50ML SYRG IV PRN (07:00)
[2019-08-16] MEDS ORDERED: SODIUM CHLORIDE 0.9% 500 ML IV ONE (07:00)
[2019-08-16] MEDS ORDERED: SODIUM CHLORIDE 0.9% 1,000 ML IV SCH (07:00)
[2019-08-16] MEDS ORDERED: chlordiazePOXIDE HCL 25 MG CAP PO PRN (07:00)
[2019-08-16] MEDS ORDERED: ACETAMINOPHEN 325 MG TAB PO PRN (07:00)
[2019-08-16] MEDS ORDERED: ONDANSETRON HCL 4 MG/2 ML VIAL IV PRN (07:00)
[2019-08-16] MEDS: ACCU-CHEK COMFORT CURVE STRIP VI SCH ×4 (07:37→22:55)
[2019-08-16] MEDS: LEVOTHYROXINE SODIUM 50 MCG TAB PO SCH (07:45)
[2019-08-16] MEDS: InsuLIN REG 1unit/0.01ml Soln (100units/ml) SC SCH ×4 (07:46→22:00)
[2019-08-16] MEDS: FOLIC ACID 1 MG, MULTIPLE VITAMIN 10 ML, MAGNESIUM SULF SDV 50% 8 MEQ, THIAMINE INJ 100... INJ SCH ×5 (11:57)
[2019-08-16] MEDS ORDERED: LABETALOL HCL 5 MG/ML 4ML SYRINGE IV ONE (12:15)
[2019-08-16] MEDS ORDERED: LABETALOL HCL 5 MG/ML 4ML SYRINGE IV PRN (12:15)
[2019-08-16] MEDS ORDERED: FLUoxetine HCL 20 MG CAP PO ONE (12:15)
[2019-08-16] MEDS: LORazepam 0.5 MG TAB PO PRN ×2 (12:38→22:48)
[2019-08-16] MEDS: GABAPENTIN 300 MG CAP PO SCH ×2 (14:30→22:47)
[2019-08-16 15:57] LABS: Urine Bacteria NONE SEEN /hpf (None Seen); Urine Blood 1+ /uL (Negative); Urine Hyaline Cast FEW /lpf (0 - 2); Urine Specific Gravity 1.022 (1.001-1.035); Urine WBC 1 /hpf (0 - 5)
[2019-08-16 16:10] LABS: Amphetamine Screen, Urine NEGATIVE (NEGATIVE); Barbiturate Scree,Urine NEGATIVE (NEGATIVE); Benzodiazephine Screen, Urine NEGATIVE (NEGATIVE); Cannabinoid Screen, Urine NEGATIVE (NEGATIVE); Cocaine Screen, Urine NEGATIVE (NEGATIVE); Opiate Scree,Urine POSITIVE (NEGATIVE); Phencyclidine Screen, Urine NEGATIVE (NEGATIVE)
[2019-08-16 20:30] VITALS: BP 153/83
--- NOTE | 2019-08-16 20:30 | NUR ---
PATIENT ADMITTED TO ROOM 220A Patient Alert and oriented to name, , her location but unable to state what had happened to her or how she had arrived at the hospital. Respirations even and non-labored without SOB. PERRLA intact, bilateral white lead grinder strong, bilateral lower extremities push/pull strong. Patient has a 2.5 x 2.5 skin tear to the sacrum, photo taken, barrier cream and optifoam applied. Patient on RA at this time. VS: T 98.2, HR 79, RR 18, BP 153/83, 97%. Bed in lowest locked position with 2 side rails up, sitter bedside. Will continue to monitor Q1hr and PRN.
[2019-08-16 20:50] VITALS: BP 153/83
[2019-08-16] MEDS ORDERED: QUEtiapine FUMARATE 25 MG TAB PO SCH (22:00)
--- NOTE | 2019-08-17 00:10 | NUR ---
HOSPITALIST CRIS PAGED
--- NOTE | 2019-08-17 00:35 | NUR ---
HOSPITALIST LYNCH CALL-BACK Orders placed for Temezapam 15 mg, one time dose.
[2019-08-17] MEDS ORDERED: TEMAZEPAM 15 MG CAP PO ONE (01:00)
[2019-08-17 05:00] VITALS: BP 122/80
[2019-08-17] MEDS: GABAPENTIN 300 MG CAP PO SCH ×2 (06:04→13:58)
[2019-08-17] MEDS: LEVOTHYROXINE SODIUM 50 MCG TAB PO SCH (06:04)
[2019-08-17 06:05] LABS: Basophils # (auto) 0 10 ^3/uL (0-0.2); Basophils % (auto) 0.5 % (0.0-2.0); Eosinophils # (auto) 0 10 ^3/uL (0-0.8); Eosinophils % (auto) 0.3 % (0.0-7.0); Hematocrit 37.6 % (36.0-46.0); Hemoglobin 12.5 g/dL (12.2-16.2); Lymphocytes # (auto) 1.5 10 ^3/uL (0.4-5.4); Lymphocytes % (auto) 29.3 % (10.0-50.0); Mean Corpuscular Hemoglobin 32.5 pg (28.0-32.0); Mean Corpuscular Hgb Conc. 33.1 g/dL (32.0-36.0); Mean Corpuscular Volume 98.1 fL (80.0-100.0); Monocytes # (auto) 0.6 10 ^3/uL (0-1.3); Monocytes % (auto) 12.3 % (0.0-12.0); Neutrophils % (auto) 57.6 % (37.0-80.0); Nucleated Red Blood Cells % 0.1 %; Platelet Count (auto) 137 10^3/uL (140-450); Red Blood Cells 3.83 10^6/uL (4.0-5.20); Red Cell Distribution Width 13.7 % (11.8-14.3); White Blood Cell 5.1 10^3/uL (4.4-10.8)
[2019-08-17] MEDS: ACCU-CHEK COMFORT CURVE STRIP VI SCH ×2 (06:05→10:55)
[2019-08-17] MEDS: InsuLIN REG 1unit/0.01ml Soln (100units/ml) SC SCH ×2 (06:08→10:54)
[2019-08-17 06:19] LABS: Albumin 3.2 g/dL (3.4-5.0); BUN/Creatinine Ratio 25.4; Calcium 8.9 mg/dL (8.5-10.1); Potassium 3.2 mmol/L (3.5-5.1)
[2019-08-17 06:22] LABS: Total Protein 6.4 g/dL (6.4-8.2)
--- NOTE | 2019-08-17 07:26 | NUR ---
Closing shift note Patient resting with eyes closed, respirations even and non-labored with no s/s of distress. Endorsed care to day shift RN.
[2019-08-17 09:00] VITALS: BP 150/88
[2019-08-17] MEDS ORDERED: FLUoxetine HCL 20 MG CAP PO SCH (10:00)
[2019-08-17] MEDS ORDERED: POTASSIUM CHL 20 Meq TABLET PO ONE (10:15)
--- NOTE | 2019-08-17 10:31 | NUR ---
De Leon catheter dc'd Order to discontinue de leon catheter. De Leon dc'd with clean technique following deflation of balloon. Patient tolerated well with no complaints of pain. Continue care.
[2019-08-17] MEDS ORDERED: FOLITAB22 PO (11:04)
[2019-08-17] MEDS ORDERED: THIA100T5 PO (11:04)
--- NOTE | 2019-08-17 11:04 | NUR ---
WOUND CARE NOTE: Wound care in to see patient per wound care request regarding sacral wounds that are noted present on admission. Bedside nurse took photograph of patient's wounds upon admission for reference. Patient is 64 years old female with admitting diagnosis of Acute Encephalopathy. Patient is resting in bed in Rm. 220A. She's awake, alert and follow simple direction. Patient is self turning and repositioning. Her Zoltan score is 19. She's in no stated pain at this time and she appears to be in no pain using Davis Kay Faces Pain Scale. Skin/wound assessment done with the assistance of another nurse, DEE Bocanegra. Patient noted with open partial thickness wounds to Lt (5x6cm) and Rt (3x4cm) sacrum; consistent with Stage 2 pressure injuries. Wound bed is red with bright red periwound, minimal serous drainage, no odor noted. On reports, patient noted by her altered and confuse for two days and unable to walk. Cleansed patient's sacral wounds with mild soap and water, patted dry, applied Z Guard cream and covered with Opti foam sacral dressing. Patient tolerated, repositioned patient for comfort facing her Lt side, redistributed pressure points with pillows. Nurse aid at bedside. RECOMMENDATION: Nursing to continue with BID/PRN cleaning and application of Z Guard cream sacrum per MD order, Dietary consult, frequent turning and repositioning schedule as condition permits, redistribute pressure points with pillows, elevate heels on pillows, continue monitoring by wound care while patient is hospitalized. Addendum: 08/17/19 at 1602 by Olivia Valle RN Amended: Links added.
[2019-08-17] MEDS: FOLIC ACID 1 MG, MULTIPLE VITAMIN 10 ML, MAGNESIUM SULF SDV 50% 8 MEQ, THIAMINE INJ 100... INJ SCH ×5 (11:26)
[2019-08-17 14:00] VITALS: BP 157/99
--- NOTE | 2019-08-17 14:02 | NUR ---
Patient urinated clear yellow urine.
--- NOTE | 2019-08-17 14:06 | NUR ---
Assessment Regarding social service consult for detox resource for alcoholism. Patient is a 63 yr old who is alert and orient female. Prior to admission patient lived with James and functioned independently. Patient informed me she can care for her own ADL's. Patient PCP is Dr Cali. Per patient she will return to her prior living arrangements and family will transport her home. Advised patient there is a social service consult for detox resources (alcoholism). Offered patient with resource. Patient accepted resource. Informed patient she has a right to participate in all discharge planning. Patient verbalized understanding and agreed to discharge plan. Addendum: 08/17/19 at 1414 by UBLL CULP Amended: Links added.
[2019-08-17 14:23] VITALS: BP 123/90
--- NOTE | 2019-08-17 15:06 | NUR ---
James (patient 's ) notified regarding patient is being discharge. He stated will come pick patient up around 5 pm.
--- NOTE | 2019-08-17 17:05 | NUR ---
Discharge instructions given as ordered. Encourage to follow up with PMD (PLEASE FOLLOW UP WITH PRIMARY CARE PROVIDER WITH DR. TOMLIN IN 08/30/19 AT 1.30 PM ADDRESS : [address] [place] [id number] #[phone] ext [phone] )as instructed. All questions and concerns addressed. Patient verbalized understanding. Medication reconciliation form completed and copy given to patient. IV removed with catheter intact, pressure dressing applied, de leon catheter removed. Telemetry unit returned to ICU. Patient taken to vehicle via wheelchair with all personal belongings, accompanied by staff and family member. No distress noted at time of departure.
== END 2019-08-17 17:05 | disposition home or self-care (01) | DRG 91 ==
LOC: EDBD 02:15 → ER 02:19 → OVERFLOW 02:20 → CENTRAL 20:12
PROVIDERS: ADMIT Nurse Practitioner; ATTEND Internal Medicine
DX: G92 Toxic encephalopathy (principal); N17.0 Acute kidney failure with tubular necrosis; F10.239 Alcohol dependence with withdrawal, unspecified; F11.20 Opioid dependence, uncomplicated; G62.9 Polyneuropathy, unspecified; E03.9 Hypothyroidism, unspecified; F10.229 Alcohol dependence with intoxication, unspecified; F17.200 Nicotine dependence, unspecified, uncomplicated; F41.9 Anxiety disorder, unspecified; F31.9 Bipolar disorder, unspecified; I10 Essential (primary) hypertension; E11.65 Type 2 diabetes mellitus with hyperglycemia; Z83.3 Family history of diabetes mellitus; Z79.899 Other long term (current) drug therapy; Y90.9 Presence of alcohol in blood, level not specified
CPT/HCPCS: 36415; 70450; 71045; 80053; 80307; 80320; 81001; 82962; 83605; 83735; 83880; 84484; 85025; 85610; 85730; 87040; 87493; 93005; 96365; G0378; J1815; J3490

== ENCOUNTER 2019-08-22 10:51 | Inpatient (IN) | payer OTHER ==
[~2019-08-22] VITALS: Ht 170.2 cm; Wt 77.3 kg
[~2019-08-22 10:51] MED LIST changes: -FLUO60TA7 PO; +FOLITAB22 PO; -PERCOT PO; -QUET100T46 PO; +THIA100T5 PO
[2019-08-22 15:41] VITALS: BP 149/72
--- NOTE | 2019-08-22 15:43 | NUR ---
DR. RAMIREZ AT BEDSIDE. NEW ORDERS OBTAINED. CBC, CMP, MG LEVEL, PHOSPHORUS LEVEL, PT/INR, CREATININE KINASE, TROPONIN, BNP, WOUND CONSULT, SURGICAL CONSULT WITH DR. KAHN FOR HEMATOMA/ABSCESS TO LEFT BUTTOCK. ATIVAN 1MG IV ONCE FOR ANXIETY. ORDERS READ BACK AND VERIFIED. WILL CARRY OUT ORDERS.
[2019-08-22] MEDS ORDERED: LORazepam 2MG/ML-1ML VIAL IV ONE (15:45)
[2019-08-22] MEDS ORDERED: NITROGLYCERIN 0.4 MG SL TAB SL PRN (16:15)
[2019-08-22] MEDS ORDERED: ENOXAPARIN SOD 80 MG/0.8ML SYRINGE SC ONE (16:15)
[2019-08-22] MEDS ORDERED: ALUM & MAG HYDROX-SIMETH LIQ(MAALOX) 30 ML PO PRN (16:15)
[2019-08-22] MEDS ORDERED: MORPHINE SULF INJ 2 MG/ML SYRINGE 1ML IV PRN (16:15)
[2019-08-22] MEDS ORDERED: LORazepam 0.5 MG TAB PO PRN (16:15)
[2019-08-22] MEDS ORDERED: ONDANSETRON HCL 4 MG/2 ML VIAL IV PRN (16:15)
[2019-08-22] MEDS ORDERED: DOCUSATE SOD 100 MG CAP PO PRN (16:15)
[2019-08-22] MEDS ORDERED: VANCOMYCIN PER PHARMACY 0 MG IV SCH (16:30)
[2019-08-22] MEDS ORDERED: FUROSEMIDE 20 MG/2 ML VIAL IV ONE (16:30)
[2019-08-22] MEDS ORDERED: hydrALAZINE HCL 20 MG/ML VL IV PRN (16:30)
[2019-08-22] MEDS ORDERED: LISINOPRIL 20 MG TAB PO ONE (16:30)
[2019-08-22] MEDS ORDERED: BACLOFEN 10 MG TAB PO PRN (16:30)
[2019-08-22] MEDS ORDERED: VANCOMYCIN 1GM/250ML 250 ML IV ONE (16:45)
[2019-08-22 17:00] VITALS: BP 163/79
[2019-08-22] MEDS: SODIUM CHLORIDE 0.9% 1,000 ML IV SCH (17:13)
[2019-08-22] MEDS ORDERED: PROP20TA73 PO (17:28)
[2019-08-22] MEDS ORDERED: BUSP15TA60 PO (17:28)
[2019-08-22] MEDS ORDERED: LISI-711 PO (17:28)
[2019-08-22] MEDS: HYDROcodone-ACET 5/325MG TAB PO PRN (18:13)
--- NOTE | 2019-08-22 18:33 | NUR ---
WOUND CARE NOTE: Wound care in to see patient per wound care request wounds that are noted present on admission. Bedside nurse took photograph of patient's wounds upon admission for reference. Patient is 64 years old female with admitting diagnosis of Pna. Patient is resting in bed in Rm. 275A. She's awake, alert and able to verbalize needs. Patient is ambulatory and self turning and repositioning. Her Zoltan score is 20. Patient is in no stated pain at this time and she appears to be in no pain using Davis Kay Faces Pain Scale. Noted patient's Lt sacrum with (2.5x3.5cm) open partial thickness wound and to Lt ( 1.5x3cm) resolving, serum blister. Sacral wounds are consistent with Stage 2 pressure injuries. Wounds are red with bright red non-blanchable periwound, no drainage or odor noted. Patient reported that wounds started when she's hospitalized but does not remember when. Patient recently at [facility] on August 15, and she came in with and seen by wound care for the same Stage 2 pressure injuries to sacrum. Cleansed patient's sacral wounds with mild soap and water, patted dry, applied Z Guard cream and covered with Opti foam sacral dressing. Patient's Rt elbow noted with 0.7x2cm open partial thickness wound. Patient reported that she must have bumped it on something but she does not remember. Cleansed skin tear with NS, patted dry with gauze, applied Thera honey gel and covered with dry dressing (band aid). Dry, scabbed skin tear noted to her distal R forearm, area is clean and dry,left open to air. Patient tolerated well. Left patient seated at side of bed with all safety precautions in placed. RECOMMENDATION: Nursing to continue with BID/PRN cleaning and application of Z Guard cream sacrum, EOD/PRN dressing change to R elbow skin tear per MD order, Dietary consult for wounds, redistribute pressure points with pillows, continue monitoring by wound care while patient is hospitalized. Addendum: 08/22/19 at 1907 by Olivia Valle RN Amended: Links added.
[2019-08-22] MEDS ORDERED: MEROPENEM 500MG IVPB 50 ML IV ONE (19:00)
[2019-08-22] MEDS: FUROSEMIDE 20 MG/2 ML VIAL IV SCH (19:09)
--- NOTE | 2019-08-22 19:12 | NUR ---
OPENING SHIFT NOTE ASSUMED CARE OF PATIENT. PATIENT IS awake, alert, and oriented X 4. NO S/S OF RESPIRATORY DISTRESS. RESPIRATIONS ARE REGULAR AND NON-LABORED. ON RA WITH SPO2 95%. BED IS IN LOWEST POSITION WITH SIDE RAILS RAISED X 2, BED WHEELS LOCKED, AND CALL LIGHT IS WITHIN REACH. PATIENT INSTRUCTED ON POC AND CALL FOR ASSISTANCE NEEDED. WILL CONTINUE TO MONITOR 1QH AND/OR PRN.
[2019-08-22 19:17] LABS: Basophils # (auto) 0 10 ^3/uL (0-0.2); Basophils % (auto) 0.6 % (0.0-2.0); Eosinophils # (auto) 0.1 10 ^3/uL (0-0.8); Hemoglobin 12.6 g/dL (12.2-16.2); Lymphocytes # (auto) 1.5 10 ^3/uL (0.4-5.4); Lymphocytes % (auto) 28.8 % (10.0-50.0); Mean Corpuscular Volume 96.9 fL (80.0-100.0); Monocytes # (auto) 0.9 10 ^3/uL (0-1.3); Monocytes % (auto) 17.1 % (0.0-12.0); Neutrophils # (auto) 2.7 10 ^3/uL (1.6-8.6); Neutrophils % (auto) 52.5 % (37.0-80.0); Nucleated Red Blood Cells % 0.2 %; Platelet Count (auto) 240 10^3/uL (140-450); Red Blood Cells 3.92 10^6/uL (4.0-5.20); Red Cell Distribution Width 13.4 % (11.8-14.3); White Blood Cell 5.1 10^3/uL (4.4-10.8)
--- NOTE | 2019-08-22 19:21 | NUR ---
PT REQUESTS SLEEPING PILLS. NOTIFIED HOSPITALIST, NEW ORDER OBTAINED TEMAZEPAM 15MG HSPRN. ORDER READ BACK AND VERIFIED WILL CARRY OUT ORDER.
[2019-08-22] MEDS ORDERED: TEMAZEPAM 15 MG CAP PO PRN (19:30)
[2019-08-22 19:32] LABS: Albumin 3.3 g/dL (3.4-5.0); Anion Gap 8 (5-15); Blood Urea Nitrogen 14 mg/dL (7-18); Calcium 9.5 mg/dL (8.5-10.1); Carbon Dioxide 23 mmol/L (21-32); Chloride 109 mmol/L (98-107); Cholesterol 165 mg/dL (< 200); Glucose 139 mg/dL (74-106); Magnesium 1.8 mg/dL (1.6-2.6); Potassium 3.8 mmol/L (3.5-5.1); Sodium 140 mmol/L (136-145)
[2019-08-22 19:34] LABS: HDL Cholesterol 76 mg/dL (40-59); LDL Cholesterol 80 mg/dL (< 100); Triglycerides 120 mg/dL (< 150)
[2019-08-22 19:39] LABS: Alanine Aminotransferase 34 U/L (13-56); Alkaline Phosphatase 72 U/L (45-117); Aspartate Aminotransferase 37 U/L (15-37); BUN/Creatinine Ratio 18.2; Bilirubin, Total 0.3 mg/dL (0.2-1.0); Creatine Kinase IFCC 593 U/L (26-192); GFR African American 96 mL/min; GFR Non-African American 80 mL/min; Phosphorus 2.1 mg/dL (2.5-4.90); Total Protein 6.8 g/dL (6.4-8.2)
[2019-08-22 20:00] VITALS: BP 116/62
[2019-08-22 20:50] LABS: INR 1.07 (0.9-1.15)
[2019-08-22 21:30] VITALS: BP 116/62
[2019-08-22] MEDS: ATORVASTATIN 20 MG TAB PO SCH (22:59)
[2019-08-22] MEDS: GABAPENTIN 300 MG CAP PO SCH (23:01)
[2019-08-22] MEDS: METOPROLOL TARTRATE 25 MG TAB PO SCH (23:01)
[2019-08-22] MEDS: FAMOTIDINE 20 MG TAB PO SCH (23:01)
[2019-08-22] MEDS: QUEtiapine FUMARATE 25 MG TAB PO SCH (23:09)
[2019-08-22] MEDS: ENOXAPARIN SOD 80 MG/0.8ML SYRINGE SC SCH (23:18)
[2019-08-22] MEDS: MORPHINE SULF INJ 2 MG/ML SYRINGE 1ML IV PRN (23:19)
[2019-08-23 01:36] LABS: Urine Bacteria FEW /hpf (None Seen); Urine Blood Negative /uL (Negative); Urine Mucus FEW (None Seen); Urine Specific Gravity 1.012 (1.001-1.035); Urine WBC 1 /hpf (0 - 5)
[2019-08-23 01:50] LABS: Alcohol, Urine < 3.0 mg/dL (0-10); Amphetamine Screen, Urine NEGATIVE (NEGATIVE); Barbiturate Scree,Urine NEGATIVE (NEGATIVE); Benzodiazephine Screen, Urine POSITIVE (NEGATIVE); Cannabinoid Screen, Urine NEGATIVE (NEGATIVE); Cocaine Screen, Urine NEGATIVE (NEGATIVE); Phencyclidine Screen, Urine NEGATIVE (NEGATIVE)
[2019-08-23 01:59] LABS: Opiate Scree,Urine POSITIVE (NEGATIVE)
[2019-08-23 05:00] VITALS: BP 114/75
[2019-08-23] MEDS ORDERED: MEROPENEM 1GM IVPB 100 ML IV SCH (06:00)
[2019-08-23 06:09] LABS: Hematocrit 34.2 % (36.0-46.0); Hemoglobin 11.4 g/dL (12.2-16.2); Mean Corpuscular Hemoglobin 32.5 pg (28.0-32.0); Mean Corpuscular Hgb Conc. 33.3 g/dL (32.0-36.0); Mean Corpuscular Volume 97.5 fL (80.0-100.0); Platelet Count (auto) 194 10^3/uL (140-450); Red Cell Distribution Width 13.3 % (11.8-14.3); White Blood Cell 3.8 10^3/uL (4.4-10.8)
[2019-08-23 06:26] LABS: INR 1.07 (0.9-1.15); Partial Thromboplastin Time 34.9 sec (23.64-32.05)
[2019-08-23] MEDS: GABAPENTIN 300 MG CAP PO SCH ×2 (06:26→20:25)
[2019-08-23] MEDS: MORPHINE SULF INJ 2 MG/ML SYRINGE 1ML IV PRN ×2 (06:26→13:09)
[2019-08-23] MEDS: LEVOTHYROXINE SODIUM 88 MCG TAB PO SCH (06:27)
[2019-08-23] MEDS: FUROSEMIDE 20 MG/2 ML VIAL IV SCH ×2 (06:29→18:00)
[2019-08-23 06:43] LABS: Potassium 3.7 mmol/L (3.5-5.1)
[2019-08-23 06:57] LABS: Band Neutrophils % (manual) 0; Basophils % (manual) 0 (0.0-2.0); Blast Cells 0; Metamyelocytes % 0; Myelocytes % 0; Promyelocytes % 0; Reactive Lymphocytes 0
[2019-08-23 07:09] LABS: Albumin 2.8 g/dL (3.4-5.0); BUN/Creatinine Ratio 18.5; Bilirubin, Total 0.3 mg/dL (0.2-1.0); Calcium 8.9 mg/dL (8.5-10.1); Magnesium 1.9 mg/dL (1.6-2.6); Phosphorus 2.9 mg/dL (2.5-4.90); Total Protein 5.9 g/dL (6.4-8.2)
--- NOTE | 2019-08-23 07:30 | NUR ---
Opening Shift Note Assumed care of patient, awake and alert. No S/S of distress/SOB or pain. Bed locked and in lowest position and call light is within reach. Instructed on POC and to call for assist PRN, and patient verbalized understanding. Will continue to monitor for changes Q1hr and PRN.
[2019-08-23 07:40] LABS: Eosinophils % (manual) 2 (0-7); Lymphocytes % (manual) 34 (10.0-50.0); Monocytes % (manual) 15 (0-12)
[2019-08-23] MEDS: DULoxetine HCL 30 MG CAP PO SCH (08:58)
[2019-08-23] MEDS: ASPirin 81 mg TAB PO SCH (08:58)
[2019-08-23 09:00] VITALS: BP 117/68
[2019-08-23] MEDS ORDERED: VANCOMYCIN 1GM/250ML 250 ML IV SCH (09:00)
[2019-08-23] MEDS: METOPROLOL TARTRATE 25 MG TAB PO SCH ×2 (09:02→20:25)
[2019-08-23] MEDS: LISINOPRIL 20 MG TAB PO SCH (09:02)
[2019-08-23] MEDS: SODIUM CHLORIDE 0.9% 1,000 ML IV SCH (09:03)
[2019-08-23] MEDS: HYDROcodone-ACET 5/325MG TAB PO PRN ×2 (09:08→18:33)
[2019-08-23] MEDS: ENOXAPARIN SOD 80 MG/0.8ML SYRINGE SC SCH ×2 (09:08→20:29)
[2019-08-23] MEDS: FAMOTIDINE 20 MG TAB PO SCH ×2 (10:00→20:24)
[2019-08-23] MEDS ORDERED: MEROPENEM 500MG IVPB 50 ML IV SCH (10:00)
--- NOTE | 2019-08-23 12:42 | NUR ---
Nutrition Assessment Notes Please refer to link for full assessment notes. Est Energy needs: 1237-9750 kcals (20-23 kcal/kgBW) Est Protein needs: 79-87 gms/day (1.0-1.1 gm/kgBW) Will continue to monitor and reassess prn. Addendum: 08/23/19 at [address] Amended: Links added. Addendum: 08/23/19 at [address] Please Note Additional Recommendation Suggest a 2gNa diet Addendum: 08/23/19 at [address] Consider a daily MVI with 500mg Vit C BID
[2019-08-23 13:00] VITALS: BP 122/80
[2019-08-23] MEDS ORDERED: CYANOCOBALAMIN 500 MCG TAB PO ONE (14:00)
[2019-08-23] MEDS ORDERED: PANT40T PO (15:30)
[2019-08-23] MEDS ORDERED: QUET25TA46 PO (15:42)
[2019-08-23] MEDS ORDERED: FLUO40CA PO (15:42)
[2019-08-23] MEDS ORDERED: MORP30TA5 PO (15:54)
[2019-08-23] MEDS ORDERED: ZOLPIDEM TARTRATE 5 MG TAB PO PRN (16:00)
--- NOTE | 2019-08-23 16:00 | NUR ---
IV insertion IV access obtained, via clean sterile technique by inserting 20 gauge catheter at right forearm after 1 attempt. IV secured properly. No trauma to site. Patient tolerated well.
[2019-08-23] MEDS ORDERED: OXYC325T14 PO (16:27)
[2019-08-23 17:00] VITALS: BP 110/73
[2019-08-23] MEDS ORDERED: IOHEXOL 300 MG/ML 100ML BOTTLE IJ ONE (17:21)
--- NOTE | 2019-08-23 19:00 | NUR ---
Opening Shift Note Assumed care of patient, awake, alert and oriented X4. Patient requested new linen, she was able to help change her bed. She reported stomachache, asked patient if this was a new onset, she explained she has been dealing with this for quite some time. She was prescribed antiacids for it in the pass and patient stated " It seams to help". No S/S of distress/SOB Instructed on POC and to call for assist as needed. will continue to monitor.
--- NOTE | 2019-08-23 19:55 | NUR ---
Family updated on pt status Family of KIRSTINJUAN MIGUEL () updated on patient's status and condition. was very rude when on the phone. Very aggressive and demanding, became very short when asked what patient took at home for pain. All questions and concerns addressed. Reassured that patient was feeling better when initial assessment was performed and frequent rounding would be done, and patient had a call light to be able to ask for help as needed. verbalized understanding.
[2019-08-23 20:00] VITALS: BP 81/54
[2019-08-23] MEDS: ATORVASTATIN 20 MG TAB PO SCH (20:25)
[2019-08-23] MEDS: QUEtiapine FUMARATE 25 MG TAB PO SCH (20:25)
[2019-08-23 22:00] VITALS: BP 81/54
[2019-08-24] MEDS: HYDROcodone-ACET 5/325MG TAB PO PRN ×2 (00:13→04:26)
[2019-08-24 05:00] VITALS: BP 98/55
[2019-08-24] MEDS: LEVOTHYROXINE SODIUM 88 MCG TAB PO SCH (05:10)
[2019-08-24] MEDS: FUROSEMIDE 20 MG/2 ML VIAL IV SCH (05:18)
[2019-08-24 06:21] LABS: Basophils # (auto) 0.1 10 ^3/uL (0-0.2); Basophils % (auto) 1.2 % (0.0-2.0); Eosinophils # (auto) 0.1 10 ^3/uL (0-0.8); Eosinophils % (auto) 1.1 % (0.0-7.0); Hematocrit 37.2 % (36.0-46.0); Hemoglobin 12.2 g/dL (12.2-16.2); Lymphocytes # (auto) 1.3 10 ^3/uL (0.4-5.4); Lymphocytes % (auto) 28.7 % (10.0-50.0); Mean Corpuscular Hemoglobin 32.1 pg (28.0-32.0); Mean Corpuscular Hgb Conc. 32.9 g/dL (32.0-36.0); Mean Corpuscular Volume 97.7 fL (80.0-100.0); Monocytes # (auto) 0.8 10 ^3/uL (0-1.3); Monocytes % (auto) 16.1 % (0.0-12.0); Neutrophils # (auto) 2.5 10 ^3/uL (1.6-8.6); Neutrophils % (auto) 52.9 % (37.0-80.0); Platelet Count (auto) 244 10^3/uL (140-450); Red Blood Cells 3.81 10^6/uL (4.0-5.20); Red Cell Distribution Width 13.4 % (11.8-14.3); White Blood Cell 4.7 10^3/uL (4.4-10.8)
[2019-08-24 06:42] LABS: Potassium 3.7 mmol/L (3.5-5.1)
[2019-08-24 06:51] LABS: BUN/Creatinine Ratio 14.9; Calcium 9.3 mg/dL (8.5-10.1)
--- NOTE | 2019-08-24 08:00 | NUR ---
OPENING SHIFT NOTE ASSUMED CARE OF PATIENT AWAKE AND ALERT. NO S/S OF DISTRESS NOTED OR COMPLAINTS OF PAIN. PATIENT UPDATED ON POC FOR THE DAY AND ALL QUESTIONS ANSWERED. BED IS IN LOWEST, LOCKED POSITION WITH SIDE RAILS UP X2 AND CALL LIGHT WITHIN REACH. WILL CONTINUE TO MONITOR Q1H AND PRN.
[2019-08-24 09:00] VITALS: BP 111/78
[2019-08-24] MEDS ORDERED: cefTRIAXone 1GM/50ML D5W 50 ML IV SCH (09:00)
--- NOTE | 2019-08-24 09:00 | NUR ---
AT BEDSIDE DR TOMLIN AT BEDSIDE ROUNDING ON PATIENT
[2019-08-24] MEDS: MORPHINE SULF INJ 2 MG/ML SYRINGE 1ML IV PRN (09:52)
[2019-08-24] MEDS ORDERED: AZITHROMYCIN 250 MG TAB PO SCH (10:00)
[2019-08-24] MEDS: METOPROLOL TARTRATE 25 MG TAB PO SCH (10:00)
[2019-08-24] MEDS: LISINOPRIL 20 MG TAB PO SCH (10:00)
[2019-08-24] MEDS ORDERED: CYANOCOBALAMIN 500 MCG TAB PO SCH (10:00)
[2019-08-24] MEDS: DULoxetine HCL 30 MG CAP PO SCH (10:08)
[2019-08-24] MEDS: ASPirin 81 mg TAB PO SCH (10:08)
[2019-08-24] MEDS: GABAPENTIN 300 MG CAP PO SCH (10:09)
[2019-08-24] MEDS: ENOXAPARIN SOD 80 MG/0.8ML SYRINGE SC SCH (10:09)
[2019-08-24] MEDS: FAMOTIDINE 20 MG TAB PO SCH (10:09)
--- NOTE | 2019-08-24 11:25 | NUR ---
PAGED PAGED DR TOMLIN TO INFORM HIM PATIENT WOULD NOT LIKE RADIOLOGY TO BE CONSULTING REGARDING HER GLUTEAL ABSCESS. PATIENT STATING SHE JUST WANTS TO GO HOME.
[2019-08-24 13:00] VITALS: BP 104/53
--- NOTE | 2019-08-24 13:30 | NUR ---
SURGICAL CONSULT DR KAHN CONSULTED WITH PATIENT. WANTS PATIENT TO FOLLOW UP WITH HIM OUTPATIENT. PATIENT VERBALIZED UNDERSTANDING.
[2019-08-24] MEDS ORDERED: ALBUAER3 IN (13:40)
[2019-08-24] MEDS ORDERED: CYAN500T3 PO (13:40)
[2019-08-24] MEDS ORDERED: DOXY-338 PO (13:40)
[2019-08-24] MEDS ORDERED: QUET25TA46 PO (13:40)
[2019-08-24] MEDS ORDERED: LISI-646 PO (13:40)
[2019-08-24] MEDS ORDERED: LEVO125T7 PO (13:40)
[2019-08-24] MEDS ORDERED: MET25T PO (13:40)
[2019-08-24] MEDS ORDERED: APIX5TAB PO (13:40)
[2019-08-24] MEDS ORDERED: SACC1CAP3 PO (14:46)
[2019-08-24] MEDS ORDERED: AMOX500T86 PO (14:46)
--- NOTE | 2019-08-24 16:45 | NUR ---
Discharge instructions given as ordered. Encourage to follow up with PMD as instructed. All questions and concerns addressed. Patient verbalized understanding. Both IVs removed with catheter intact, pressure dressing applied. Telemetry unit returned to ICU. Patient taken to vehicle via wheelchair with all personal belongings, accompanied by staff. No distress noted at time of departure.
== END 2019-08-24 16:43 | disposition home or self-care (01) | DRG 193 ==
LOC: TELE-WESTW 14:34
PROVIDERS: ADMIT Internal Medicine; ATTEND Internal Medicine
DX: J18.9 Pneumonia, unspecified organism (principal); G93.41 Metabolic encephalopathy; J96.01 Acute respiratory failure with hypoxia; N10 Acute pyelonephritis; L02.31 Cutaneous abscess of buttock; I82.531 Chronic embolism and thrombosis of right popliteal vein; N39.0 Urinary tract infection, site not specified; E66.9 Obesity, unspecified; M79.7 Fibromyalgia; K29.70 Gastritis, unspecified, without bleeding; K21.9 Gastro-esophageal reflux disease without esophagitis; F41.9 Anxiety disorder, unspecified; F32.9 Major depressive disorder, single episode, unspecified; M19.90 Unspecified osteoarthritis, unspecified site; E03.9 Hypothyroidism, unspecified; I10 Essential (primary) hypertension; F10.10 Alcohol abuse, uncomplicated; E87.70 Fluid overload, unspecified; Y90.9 Presence of alcohol in blood, level not specified; F17.200 Nicotine dependence, unspecified, uncomplicated; Z03.818 Encounter for observation for suspected exposure to other biological agents ruled out; Z79.899 Other long term (current) drug therapy; Z82.49 Family history of ischemic heart disease and other diseases of the circulatory system; Z91.14 Patient's other noncompliance with medication regimen; Z68.26 Body mass index [BMI] 26.0-26.9, adult
CPT/HCPCS: 36415; 36600; 72193; 80048; 80053; 80061; 80307; 81001; 82550; 82805; 83036; 83735; 83880; 84100; 84439; 84443; 84484; 85007; 85025; 85027; 85610; 85730; 87040; 87081; 87086; 93306; G0378; J0696; J2185; J2405

== ENCOUNTER 2019-09-07 11:48 | Inpatient (IN) | payer OTHER ==
[~2019-09-07] VITALS: Ht 157.5 cm; Wt 64.4 kg
[~2019-09-07 11:48] MED LIST changes: +ALBUAER3 IN; +AMOX500T86 PO; +APIX5TAB PO; +CYAN500T3 PO; +DOXY-338 PO; +FLUO40CA PO; +LISI-646 PO; -LORA0.5T12 PO; +MET25T PO; -ONDA-143 PO; +PANT40T PO; +QUET25TA46 PO; +SACC1CAP3 PO; -THIA100T5 PO
[2019-09-07] MEDS ORDERED: SODIUM CHLORIDE 0.9% 1,000 ML IV ONE (12:27)
[2019-09-07] MEDS ORDERED: DOPamine 1600MCG/ML D5W 250 ML IV ONE (12:35)
[2019-09-07] MEDS: DOPamine 1600MCG/ML D5W 250 ML IV SCH (12:43)
[2019-09-07] MEDS ORDERED: SODIUM CHLORIDE 0.9% 500 ML IV ONE (12:45)
[2019-09-07] MEDS ORDERED: NOREPINEPHRINE 8 MG/250ML KIT 250 ML IV ONE (12:51)
[2019-09-07 12:52] LABS: Basophils # (auto) 0 10 ^3/uL (0-0.2); Basophils % (auto) 0.9 % (0.0-2.0); Eosinophils # (auto) 0.1 10 ^3/uL (0-0.8); Hematocrit 33.6 % (36.0-46.0); Hemoglobin 10.7 g/dL (12.2-16.2); Lymphocytes # (auto) 1.4 10 ^3/uL (0.4-5.4); Lymphocytes % (auto) 33.3 % (10.0-50.0); Mean Corpuscular Hgb Conc. 31.9 g/dL (32.0-36.0); Mean Corpuscular Volume 100.5 fL (80.0-100.0); Monocytes # (auto) 0.4 10 ^3/uL (0-1.3); Monocytes % (auto) 10.9 % (0.0-12.0); Neutrophils # (auto) 2.1 10 ^3/uL (1.6-8.6); Neutrophils % (auto) 51.9 % (37.0-80.0); Nucleated Red Blood Cells % 0.1 %; Platelet Count (auto) 187 10^3/uL (140-450); Red Blood Cells 3.34 10^6/uL (4.0-5.20); Red Cell Distribution Width 14.2 % (11.8-14.3); White Blood Cell 4.1 10^3/uL (4.4-10.8)
[2019-09-07] MEDS ORDERED: AZITHROMYCIN 500MG/ 250ML 250 ML IV ONE (13:15)
[2019-09-07] MEDS ORDERED: cefTRIAXone 1GM/50ML D5W 50 ML IV ONE (13:15)
[2019-09-07] MEDS ORDERED: DexAMETHasone SOD PHOS 10MG/1ML VIAL INJ IV ONE (13:15)
[2019-09-07 13:17] LABS: Blood Urea Nitrogen 14 mg/dL (7-18); Calcium 8.8 mg/dL (8.5-10.1); Chloride 115 mmol/L (98-107); Potassium 4.5 mmol/L (3.5-5.1); Sodium 145 mmol/L (136-145)
[2019-09-07 13:19] LABS: INR 1.05 (0.9-1.15); Partial Thromboplastin Time 27.6 sec (23.64-32.05)
[2019-09-07 13:23] LABS: CRP High Sensitivity 0.12 mg/dL (< 0.3)
[2019-09-07 13:25] LABS: Alanine Aminotransferase 22 U/L (13-56); Albumin 3.3 g/dL (3.4-5.0); Alkaline Phosphatase 70 U/L (45-117); Anion Gap 2 (5-15); Aspartate Aminotransferase 15 U/L (15-37); BUN/Creatinine Ratio 13.1; Bilirubin, Total 0.3 mg/dL (0.2-1.0); Carbon Dioxide 28 mmol/L (21-32); GFR African American 66 mL/min; GFR Non-African American 55 mL/min; Glucose 96 mg/dL (74-106); Total Protein 6.6 g/dL (6.4-8.2)
[2019-09-07 13:33] LABS: Urine Bacteria NONE SEEN /hpf (None Seen); Urine Blood Negative /uL (Negative); Urine Hyaline Cast MOD /lpf (0 - 2); Urine Mucus FEW (None Seen); Urine Specific Gravity 1.022 (1.001-1.035); Urine WBC <1 /hpf (0 - 5)
[2019-09-07] MEDS ORDERED: THIAMINE 100mg/ml INJ (200mg/2ml VIAL) IV ONE (13:45)
[2019-09-07 13:50] LABS: Alcohol, Urine < 3.0 mg/dL (0-10); Amphetamine Screen, Urine NEGATIVE (NEGATIVE); Barbiturate Scree,Urine NEGATIVE (NEGATIVE); Benzodiazephine Screen, Urine NEGATIVE (NEGATIVE); Cannabinoid Screen, Urine NEGATIVE (NEGATIVE); Cocaine Screen, Urine NEGATIVE (NEGATIVE); Opiate Scree,Urine POSITIVE (NEGATIVE); Phencyclidine Screen, Urine NEGATIVE (NEGATIVE)
[2019-09-07] MEDS: NOREPINEPHRINE 8 MG/250ML KIT 250 ML IV SCH (14:37)
[2019-09-07] MEDS ORDERED: FUROSEMIDE 20 MG/2 ML VIAL IV ONE (16:30)
[2019-09-07] MEDS ORDERED: IOHEXOL 350 MG/ML 100ML IJ ONE (16:40)
[2019-09-07] MEDS ORDERED: MORPHINE SULF INJ 2 MG/ML SYRINGE 1ML IV PRN (16:45)
[2019-09-07] MEDS ORDERED: NITROGLYCERIN 0.4 MG SL TAB SL PRN (16:45)
[2019-09-07] MEDS ORDERED: ALBUTEROL SULF 2.5 MG/0.5ML(0.5%) NEB SOLN NEB PRN (18:15)
[2019-09-07] MEDS ORDERED: LACTULOSE 20Gm/30ML SOLN PO PRN (18:15)
[2019-09-07] MEDS ORDERED: DEXTROSE (50%) 50ML SYRG IV PRN (18:15)
[2019-09-07] MEDS ORDERED: ONDANSETRON HCL 4 MG/2 ML VIAL IV PRN (18:15)
[2019-09-07] MEDS ORDERED: ALBUTEROL SULF HFA 90MCG INH 200DOSE IN PRN (18:15)
[2019-09-07 18:32] VITALS: BP 123/73
[2019-09-07] MEDS: FUROSEMIDE 40 MG/4 ML VIAL IV SCH (21:15)
[2019-09-07] MEDS ORDERED: METOPROLOL TARTRATE 25 MG TAB PO SCH (22:00)
[2019-09-07] MEDS: InsuLIN REG 1unit/0.01ml Soln (100units/ml) SC SCH (22:52)
[2019-09-07] MEDS: QUEtiapine FUMARATE 25 MG TAB PO SCH (22:54)
[2019-09-07] MEDS: APIXABAN 5 MG TAB PO SCH (22:55)
[2019-09-07] MEDS: GABAPENTIN 300 MG CAP PO SCH (22:55)
[2019-09-07] MEDS: ACCU-CHEK COMFORT CURVE STRIP VI SCH (22:55)
[2019-09-07] MEDS: SODIUM CHLOR 0.9% PF (SALINE LOCK) 10ML VIAL/SYR IV SCH (22:55)
[2019-09-08] MEDS: ALBUTEROL SULF 2.5 MG/0.5ML(0.5%) NEB SOLN NEB SCH ×4 (00:37→18:19)
[2019-09-08] MEDS: IPRATROPIUM BROM 0.5 MG/2.5ML INH SOL NEB SCH ×4 (00:38→18:18)
[2019-09-08] MEDS ORDERED: ALBUMIN 5% 250 ML IV ONE (01:30)
[2019-09-08] MEDS: FUROSEMIDE 40 MG/4 ML VIAL IV SCH ×2 (05:21→17:35)
[2019-09-08] MEDS: SODIUM CHLOR 0.9% PF (SALINE LOCK) 10ML VIAL/SYR IV SCH ×3 (05:22→21:53)
[2019-09-08] MEDS: GABAPENTIN 300 MG CAP PO SCH (05:22)
[2019-09-08] MEDS: ACCU-CHEK COMFORT CURVE STRIP VI SCH ×4 (06:15→21:54)
[2019-09-08] MEDS: DOPamine 1600MCG/ML D5W 250 ML IV SCH (06:17)
[2019-09-08] MEDS: LEVOTHYROXINE SODIUM 100 MCG TAB PO SCH (06:24)
[2019-09-08] MEDS: LEVOTHYROXINE SODIUM 25 MCG TAB PO SCH (06:25)
[2019-09-08] MEDS: InsuLIN REG 1unit/0.01ml Soln (100units/ml) SC SCH ×4 (06:26→21:54)
[2019-09-08 07:24] LABS: Basophils # (auto) 0 10 ^3/uL (0-0.2); Basophils % (auto) 0.5 % (0.0-2.0); Eosinophils # (auto) 0 10 ^3/uL (0-0.8); Eosinophils % (auto) 0.1 % (0.0-7.0); Hematocrit 31.1 % (36.0-46.0); Hemoglobin 10.2 g/dL (12.2-16.2); Lymphocytes # (auto) 1.3 10 ^3/uL (0.4-5.4); Lymphocytes % (auto) 25.1 % (10.0-50.0); Mean Corpuscular Hemoglobin 32.2 pg (28.0-32.0); Mean Corpuscular Hgb Conc. 32.9 g/dL (32.0-36.0); Monocytes # (auto) 0.4 10 ^3/uL (0-1.3); Monocytes % (auto) 8.3 % (0.0-12.0); Neutrophils # (auto) 3.3 10 ^3/uL (1.6-8.6); Platelet Count (auto) 188 10^3/uL (140-450); Red Blood Cells 3.17 10^6/uL (4.0-5.20); Red Cell Distribution Width 13.8 % (11.8-14.3)
[2019-09-08 07:40] LABS: BUN/Creatinine Ratio 14.3; Calcium 9.1 mg/dL (8.5-10.1); Potassium 4.1 mmol/L (3.5-5.1)
[2019-09-08] MEDS: cefTRIAXone 1GM/50ML D5W 50 ML IV SCH (09:16)
[2019-09-08 10:00] VITALS: BP 115/63
[2019-09-08] MEDS: Folic Acid-Pyridoxine-Cyancoba (Folbic) PO SCH (10:00)
[2019-09-08] MEDS ORDERED: LISINOPRIL 20 MG TAB PO SCH (10:00)
--- NOTE | 2019-09-08 10:00 | NUR ---
PATIENT ADMITTED ONTO ICU SERVICES HOWEVER PATIENT REMAINS IN THE ER IN ASHLEY 15.
[2019-09-08] MEDS: DULoxetine HCL 30 MG CAP PO SCH (10:57)
[2019-09-08] MEDS: ASPirin 81 mg TAB PO SCH (10:57)
[2019-09-08] MEDS: AZITHROMYCIN 500MG/ 250ML 250 ML IV SCH (10:57)
[2019-09-08] MEDS: APIXABAN 5 MG TAB PO SCH ×2 (10:58→21:53)
[2019-09-08] MEDS: PANTOPRAZOLE 40 MG TAB PO SCH (10:58)
[2019-09-08] MEDS: POTASSIUM CHL 20 Meq TABLET PO SCH (10:58)
[2019-09-08 11:00] VITALS: BP 110/48
[2019-09-08] MEDS: NOREPINEPHRINE 8 MG/250ML KIT 250 ML IV SCH (11:40)
[2019-09-08 12:00] VITALS: BP 101/59
--- NOTE | 2019-09-08 12:26 | NUR ---
PATIENT GOING TO GET HEAD CT.
--- NOTE | 2019-09-08 13:00 | NUR ---
WOUND CARE NOTE: SPECIALTY AIR MATTRESS ORDERED WITH HILL ROM AT THIS TIME. PATIENT TO BE PLACED, PENDING DELIVERY. ADVISED CONSTRUCTION EQUIPMENT OVERHAULER TO MAKE HOSPITAL BED FRAME AVAILABLE FOR FAN BALANCER TO PLACE LOW AIRLOSS MATTRESS UPON DELIVERY.
[2019-09-08] MEDS: ACETAMINOPHEN 500 MG TAB PO PRN (15:54)
[2019-09-08 16:00] VITALS: BP 123/69
[2019-09-08] MEDS: traMADol HCL 50 MG TAB PO PRN (17:35)
--- NOTE | 2019-09-08 18:17 | NUR ---
RT NOTE PT WAS SEEN BY RT FOR HHN TX. PT TOLERATES WELL VIA MASK. NO ADVERSE REACTION NOTED. CONT 0RDERED Addendum: 09/08/19 at 1833 by Meme Abreu RT Amended: Links added.
[2019-09-08] MEDS: QUEtiapine FUMARATE 25 MG TAB PO SCH (21:53)
[2019-09-09] VITALS (7 sets, daily range): BP systolic 116–145; BP diastolic 80–90
--- NOTE | 2019-09-09 00:25 | NUR ---
MS admit from [facility] FULTONJUAN MIGUEL admitted to tele/MS after SBAR received. Patient oriented to Sondra Fernandez, primary RN, unit, room, bed, and unit policies regarding patient care and visiting hours. Patient weighed by bedscale and encouraged to call if they need something. All questions and concerns addressed, patient verbalized understanding. Note: PATIENT A & O X 2. REORIENTED PATIENT TIME AND SITUATION. PATIENT COULD NOT BE ABLE TO RECALL HER HOME MEDICATION. WILL CALL PATIENT'S FAMILY IN THE MORNING FOR THE LIST OF HOME MEDICATION. SPECIAL MATTRESS BED LOCKED IN LOWEST POSITION WITH SIDE RAILS UP X 2. CALL DIEHL WITHIN REACH. ALARM ON. COOLING MEASURE APPLIED FOR TEMP 100. CONTINUE TO MONITOR.
[2019-09-09] MEDS: IPRATROPIUM BROM 0.5 MG/2.5ML INH SOL NEB SCH ×4 (00:44→19:27)
[2019-09-09] MEDS: ALBUTEROL SULF 2.5 MG/0.5ML(0.5%) NEB SOLN NEB SCH ×4 (00:44→19:26)
--- NOTE | 2019-09-09 00:50 | NUR ---
RT NOTE PT WAS SEEN BY RT FOR HHN TX. PT TOLERATES WELL VIA MASK. NO ADVERSE REACTION NOTED. CONT ORDERED Addendum: 09/09/19 at 0121 by Meme Abreu RT Amended: Links added.
--- NOTE | 2019-09-09 00:55 | NUR ---
WOUND PICTURE TAKEN. MRSA SWAB COLLECTED AND SENT. CONTINUE TO MONITOR.
--- NOTE | 2019-09-09 02:45 | NUR ---
PATIENT SLEEPING. NO S/S OF DISTRESS NOTED. CONTINUE TO MONITOR.
[2019-09-09] MEDS: FUROSEMIDE 40 MG/4 ML VIAL IV SCH ×2 (06:35→17:55)
[2019-09-09] MEDS: ACCU-CHEK COMFORT CURVE STRIP VI SCH ×4 (06:35→22:00)
[2019-09-09] MEDS: LEVOTHYROXINE SODIUM 100 MCG TAB PO SCH (06:35)
[2019-09-09] MEDS: traMADol HCL 50 MG TAB PO PRN (06:35)
[2019-09-09] MEDS: SODIUM CHLOR 0.9% PF (SALINE LOCK) 10ML VIAL/SYR IV SCH ×3 (06:35→22:40)
[2019-09-09] MEDS: LEVOTHYROXINE SODIUM 25 MCG TAB PO SCH (06:35)
[2019-09-09] MEDS: InsuLIN REG 1unit/0.01ml Soln (100units/ml) SC SCH ×4 (06:36→22:00)
--- NOTE | 2019-09-09 06:46 | NUR ---
ACCU-CHECK, BS 127. NO COVERAGE. MEDICATED PATIENT FOR PAIN @ 08/08 ORDERED. CONTINUE TO MONITOR.
[2019-09-09 07:01] LABS: Basophils # (auto) 0 10 ^3/uL (0-0.2); Basophils % (auto) 0.5 % (0.0-2.0); Eosinophils # (auto) 0 10 ^3/uL (0-0.8); Eosinophils % (auto) 0.5 % (0.0-7.0); Hematocrit 33.2 % (36.0-46.0); Lymphocytes # (auto) 1.2 10 ^3/uL (0.4-5.4); Lymphocytes % (auto) 20.5 % (10.0-50.0); Mean Corpuscular Hemoglobin 32.2 pg (28.0-32.0); Mean Corpuscular Hgb Conc. 33.2 g/dL (32.0-36.0); Mean Corpuscular Volume 97.2 fL (80.0-100.0); Monocytes # (auto) 0.5 10 ^3/uL (0-1.3); Monocytes % (auto) 9.3 % (0.0-12.0); Neutrophils % (auto) 69.2 % (37.0-80.0); Platelet Count (auto) 180 10^3/uL (140-450); Red Blood Cells 3.41 10^6/uL (4.0-5.20); Red Cell Distribution Width 13.7 % (11.8-14.3); White Blood Cell 5.8 10^3/uL (4.4-10.8)
[2019-09-09 07:23] LABS: Albumin 3.1 g/dL (3.4-5.0); Calcium 8.9 mg/dL (8.5-10.1); Magnesium 2.1 mg/dL (1.6-2.6)
[2019-09-09 07:27] LABS: Bilirubin, Total 0.4 mg/dL (0.2-1.0); Total Protein 6.5 g/dL (6.4-8.2)
[2019-09-09] MEDS: cefTRIAXone 1GM/50ML D5W 50 ML IV SCH (09:20)
[2019-09-09] MEDS: APIXABAN 5 MG TAB PO SCH ×2 (09:21→22:00)
[2019-09-09] MEDS: ASPirin 81 mg TAB PO SCH (09:21)
[2019-09-09] MEDS: POTASSIUM CHL 20 Meq TABLET PO SCH (09:21)
[2019-09-09] MEDS: DULoxetine HCL 30 MG CAP PO SCH (09:21)
[2019-09-09] MEDS: PANTOPRAZOLE 40 MG TAB PO SCH (09:21)
[2019-09-09] MEDS: Folic Acid-Pyridoxine-Cyancoba (Folbic) PO SCH (09:22)
[2019-09-09] MEDS: AZITHROMYCIN 500MG/ 250ML 250 ML IV SCH (10:42)
--- NOTE | 2019-09-09 10:45 | NUR ---
WOUND CARE NOTE: IN TO SEE PATIENT AT THIS TIME PER WOUND CARE CONSULT REQUEST. PATIENT RECENTLY ADMITTED TO [facility] WITH DIAGNOSIS OF BILATERAL PNA, PULMONARY EDEMA, ALOC. CURRENT ANGEL SCORE IS 15. PATIENT IS RESTING ON SPECIALTY AIR MATTRESS. PATIENT IS OBSERVED TO BE ABLE TO SELF TURN/REPOSITION SELF. PATIENT STATES THAT SHE IS AWARE OF HER HAVING A WOUND TO HER BUTTOCKS, BUT NOT SURE HOW LONG SHE HAS HAD IT. PATIENT TURNED TO LEFT SIDE. SHE IS NOTED TO HAVE AN AREA WITH ERYTHEMA, INDURATION TO THE LEFT BUTTOCKS/INTRAGLUTEAL AREA. NO OPEN OR DRAINING AREAS NOTED. THE AREA OF INDURATION IS VERY TENDER TO THE TOUCH. IT APPEARS THAT PATIENT HAS A MASS/ABSCESS TO THE LEFT INTRAGLUTEAL BUTTOCKS. ADVISED BEDSIDE NURSE OF THE WOUND. NO OTHER SKIN INTEGRITY ISSUES SEEN AT THIS TIME. RECOMMEND: SURGICAL CONSULT FOR MASS/ABSCESS, CONTINUATION WITH AIR MATTRESS, SKIN/WOUND CARE PLAN, CONTINUED MONITORING BY WOUND CARE TEAM AT THIS TIME. Addendum: 09/09/19 at 1638 by Kate Rasheed RN Amended: Links added.
[2019-09-09] MEDS: ACETAMINOPHEN 500 MG TAB PO PRN (14:43)
[2019-09-09] MEDS ORDERED: LORazepam 0.5 MG TAB PO PRN (18:00)
[2019-09-09] MEDS ORDERED: LORazepam 2MG/ML-1ML VIAL IV PRN (18:00)
--- NOTE | 2019-09-09 19:30 | NUR ---
RT NOTE PT WAS SEEN BY RT FOR HHN TX. PT TOLERATES WELL VIA MASK. NO ADVERSE REACTION NOTED. PT REQUESTING TO TALK TO DAYSHIFT DEE LOPEZ AFTER HE GIVES REPORT. DEE LOPEZ NOTIFIED. CONT ORDERED Addendum: 09/09/19 at 1931 by Meme Abreu RT Amended: Links added.
[2019-09-09] MEDS: BACLOFEN 10 MG TAB PO PRN (19:51)
--- NOTE | 2019-09-09 20:46 | NUR ---
SPOKE WITH DR TOMLIN FOR BLOOD THINNER CLARIFICATION BECAUSE PT IS PRE-OP;DR TOMLIN STATES TO HOLD ELIQUIS TONIGHT AND STILL KEEP PT NPO.
[2019-09-09] MEDS: QUEtiapine FUMARATE 25 MG TAB PO SCH (22:41)
[2019-09-10] MEDS: ALBUTEROL SULF 2.5 MG/0.5ML(0.5%) NEB SOLN NEB SCH ×4 (00:20→18:59)
[2019-09-10] MEDS: IPRATROPIUM BROM 0.5 MG/2.5ML INH SOL NEB SCH ×4 (00:20→18:59)
--- NOTE | 2019-09-10 00:23 | NUR ---
RT NOTE PT WAS SEEN BY RT FOR HHN TX. PT TOLERATES WELL VIA MASK. NO ADVERSE REACTION NOTED. CONT ORDERED Addendum: 09/10/19 at 0023 by Meme Abreu RT Amended: Links added.
[2019-09-10] MEDS: traMADol HCL 50 MG TAB PO PRN ×2 (00:42→22:16)
--- NOTE | 2019-09-10 06:00 | NUR ---
PT GIVEN CHLORHEXADRENE PRE-OP BATH;TOLERATED WELL.
[2019-09-10] MEDS: LEVOTHYROXINE SODIUM 100 MCG TAB PO SCH (06:02)
[2019-09-10] MEDS: LEVOTHYROXINE SODIUM 25 MCG TAB PO SCH (06:02)
[2019-09-10] MEDS: SODIUM CHLOR 0.9% PF (SALINE LOCK) 10ML VIAL/SYR IV SCH ×3 (06:18→22:04)
[2019-09-10] MEDS: FUROSEMIDE 40 MG/4 ML VIAL IV SCH ×2 (06:20→18:07)
[2019-09-10] MEDS: InsuLIN REG 1unit/0.01ml Soln (100units/ml) SC SCH ×4 (07:00→22:00)
[2019-09-10] MEDS: ACCU-CHEK COMFORT CURVE STRIP VI SCH ×4 (07:15→22:05)
[2019-09-10 09:00] VITALS: BP 134/92
[2019-09-10] MEDS: APIXABAN 5 MG TAB PO SCH ×2 (09:09→22:05)
[2019-09-10] MEDS: DULoxetine HCL 30 MG CAP PO SCH (09:11)
[2019-09-10] MEDS: Folic Acid-Pyridoxine-Cyancoba (Folbic) PO SCH (09:11)
[2019-09-10] MEDS: ASPirin 81 mg TAB PO SCH (09:11)
[2019-09-10] MEDS: PANTOPRAZOLE 40 MG TAB PO SCH (09:12)
[2019-09-10] MEDS: POTASSIUM CHL 20 Meq TABLET PO SCH (09:12)
[2019-09-10] MEDS: cefTRIAXone 1GM/50ML D5W 50 ML IV SCH (09:20)
[2019-09-10] MEDS: AZITHROMYCIN 500MG/ 250ML 250 ML IV SCH (10:30)
--- NOTE | 2019-09-10 12:13 | NUR ---
Nutrition Assessment Notes: Please see attached link for complete assessment Est Energy needs BW 72 [id number] kcals (25-30 kcal/kgBW), Est Protein needs: 72-86 gms/day (1.0-1.2 gm/kgBW r/t wounds). Will continue to monitor and reassess prn. Addendum: 09/10/19 at [address] Amended: Links added.
[2019-09-10 13:00] VITALS: BP 149/93
--- NOTE | 2019-09-10 13:19 | NUR ---
EEG- Electroencephalogram complete on 09/10/2019 @12:00
[2019-09-10 17:00] VITALS: BP 138/81
[2019-09-10 19:32] VITALS: BP 138/81
[2019-09-10 21:50] VITALS: BP 123/75
[2019-09-10] MEDS: QUEtiapine FUMARATE 25 MG TAB PO SCH (22:05)
[2019-09-10] MEDS: BACLOFEN 10 MG TAB PO PRN (22:05)
[2019-09-11] MEDS: IPRATROPIUM BROM 0.5 MG/2.5ML INH SOL NEB SCH ×4 (00:49→18:00)
[2019-09-11] MEDS: ALBUTEROL SULF 2.5 MG/0.5ML(0.5%) NEB SOLN NEB SCH ×4 (00:49→18:00)
--- NOTE | 2019-09-11 00:49 | NUR ---
Respiratory note: AT BEDSIDE FOR MED NEB TX. PT REFUSING TX, PT STATES SHE JUST WANTS TO SLEEP. EXPLAINED BENEFITS OF TX. PT STILL REFUSING. RN LUCILLE COMMUNICATED ON MED NEB REFUSAL. POX 94-96% ON RA. HR 80S. BS ARE CLEAR DIMINISHED T/O. PT AWARE I CAN BE PAGED AT ANY TIME SHE EXPERIENCES SOB OR HAVE ANY CONCERN WITH HER BREATHING.
[2019-09-11 05:31] VITALS: BP 133/90
[2019-09-11] MEDS: FUROSEMIDE 40 MG/4 ML VIAL IV SCH (05:44)
[2019-09-11] MEDS: SODIUM CHLOR 0.9% PF (SALINE LOCK) 10ML VIAL/SYR IV SCH (05:44)
[2019-09-11] MEDS: LEVOTHYROXINE SODIUM 25 MCG TAB PO SCH (05:44)
[2019-09-11] MEDS: LEVOTHYROXINE SODIUM 100 MCG TAB PO SCH (05:44)
[2019-09-11] MEDS: ACCU-CHEK COMFORT CURVE STRIP VI SCH ×2 (05:45→12:39)
--- NOTE | 2019-09-11 05:45 | NUR ---
Patient requesting Synthroid early, will administer and continue to monitor.
[2019-09-11] MEDS: InsuLIN REG 1unit/0.01ml Soln (100units/ml) SC SCH ×2 (05:57→11:30)
[2019-09-11] MEDS: traMADol HCL 50 MG TAB PO PRN (05:58)
--- NOTE | 2019-09-11 06:56 | NUR ---
Patient lying in bed, awake and alert. No s/s of distress. Bed in lowest locked position, side rails up x2, call light within reach. Care endorsed to dayshift RN.
[2019-09-11] MEDS: cefTRIAXone 1GM/50ML D5W 50 ML IV SCH (08:53)
[2019-09-11] MEDS: BACLOFEN 10 MG TAB PO PRN (08:54)
[2019-09-11 09:02] VITALS: BP 137/94
[2019-09-11] MEDS: ASPirin 81 mg TAB PO SCH (09:24)
[2019-09-11] MEDS: APIXABAN 5 MG TAB PO SCH (09:24)
[2019-09-11] MEDS: AZITHROMYCIN 500MG/ 250ML 250 ML IV SCH (09:24)
[2019-09-11] MEDS: PANTOPRAZOLE 40 MG TAB PO SCH (09:24)
[2019-09-11] MEDS: POTASSIUM CHL 20 Meq TABLET PO SCH (09:24)
[2019-09-11] MEDS: DULoxetine HCL 30 MG CAP PO SCH (09:25)
[2019-09-11] MEDS: Folic Acid-Pyridoxine-Cyancoba (Folbic) PO SCH (10:00)
--- NOTE | 2019-09-11 10:54 | NUR ---
Respiratory note: PT NOT IN ROOM. UNABLE TO ADMINISTER MED NEB TX AT THIS TIME. PT OFF UNIT.
[2019-09-11 13:00] VITALS: BP 156/89
--- NOTE | 2019-09-11 13:20 | NUR ---
De Leon catheter dc'd Order to discontinue de leon catheter. De Leon dc'd with clean technique following deflation of balloon. Patient tolerated well with no complaints of pain. Continue care.
[2019-09-11] MEDS ORDERED: FURO1TAB31 PO (14:28)
[2019-09-11] MEDS ORDERED: POTA-167 PO (14:28)
[2019-09-11 15:35] VITALS: BP 137/94
[2019-09-11 17:00] VITALS: BP 145/107
--- NOTE | 2019-09-11 17:22 | NUR ---
Discharge instructions given as ordered. Encourage to follow up with PMD as instructed. All questions and concerns addressed. Patient verbalized understanding. Medication reconciliation form completed and copy given to patient. IV removed with catheter intact and pressure dressing applied, de leon catheter previously removed. Patient taken to vehicle via wheelchair with all personal belongings, accompanied by staff. No distress noted at time of departure.
== END 2019-09-11 17:30 | disposition home or self-care (01) | DRG 917 ==
LOC: ER 11:48 → TELE 11:49 → TELE-WESTW 09-09 00:10
PROVIDERS: ADMIT Internal Medicine; ATTEND Internal Medicine
DX: T50.991A Poisoning by other drugs, medicaments and biological substances, accidental (unintentional), initial encounter (principal); I50.43 Acute on chronic combined systolic (congestive) and diastolic (congestive) heart failure; J18.9 Pneumonia, unspecified organism; J96.00 Acute respiratory failure, unspecified whether with hypoxia or hypercapnia; G92 Toxic encephalopathy; J81.1 Chronic pulmonary edema; I82.531 Chronic embolism and thrombosis of right popliteal vein; I82.431 Acute embolism and thrombosis of right popliteal vein; Z03.818 Encounter for observation for suspected exposure to other biological agents ruled out; E03.9 Hypothyroidism, unspecified; F41.9 Anxiety disorder, unspecified; G89.29 Other chronic pain; M54.9 Dorsalgia, unspecified; F17.200 Nicotine dependence, unspecified, uncomplicated; X58.XXXA Exposure to other specified factors, initial encounter; E11.9 Type 2 diabetes mellitus without complications; I11.0 Hypertensive heart disease with heart failure; Z83.3 Family history of diabetes mellitus; Z82.49 Family history of ischemic heart disease and other diseases of the circulatory system; Z79.899 Other long term (current) drug therapy; Z90.710 Acquired absence of both cervix and uterus; Z79.01 Long term (current) use of anticoagulants
CPT/HCPCS: 36415; 36600; 70450; 70551; 71045; 80048; 80053; 80307; 80320; 81001; 82140; 82550; 82728; 82805; 82962; 83036; 83605; 83615; 83735; 83880; 84443; 84484; 85025; 85379; 85610; 85730; 86141; 87040; 87070; 87081; 87804; 87880; 93005; 93971; 94640; 95819; 96365; 96366; 96368; 96375; 99291; G0378; J0696; J1100; J1815; J2405

== ENCOUNTER 2019-11-09 04:57 | Inpatient (IN) | payer OTHER ==
[~2019-11-09] VITALS: Ht 170.2 cm; Wt 77.7 kg
[~2019-11-09 04:57] MED LIST changes: -AMOX500T86 PO; -DOXY-338 PO; -FLUO40CA PO; +FURO1TAB31 PO; -GABA300C10 PO; +POTA-167 PO; -QUET25TA46 PO; -SACC1CAP3 PO
[2019-11-09 06:04] LABS: Basophils # (auto) 0 10 ^3/uL (0-0.2); Basophils % (auto) 0.7 % (0.0-2.0); Eosinophils # (auto) 0 10 ^3/uL (0-0.8); Hematocrit 33.7 % (36.0-46.0); Lymphocytes % (auto) 24.5 % (10.0-50.0); Mean Corpuscular Hemoglobin 31.7 pg (28.0-32.0); Mean Corpuscular Hgb Conc. 32.7 g/dL (32.0-36.0); Mean Corpuscular Volume 96.9 fL (80.0-100.0); Monocytes # (auto) 0.5 10 ^3/uL (0-1.3); Monocytes % (auto) 11.9 % (0.0-12.0); Neutrophils # (auto) 2.5 10 ^3/uL (1.6-8.6); Neutrophils % (auto) 61.9 % (37.0-80.0); Platelet Count (auto) 251 10^3/uL (140-450); Red Blood Cells 3.48 10^6/uL (4.0-5.20); Red Cell Distribution Width 15.3 % (11.8-14.3)
[2019-11-09 06:25] LABS: Urine Bacteria FEW /hpf (None Seen); Urine Blood Negative /uL (Negative); Urine Hyaline Cast MANY /lpf (0 - 2); Urine Specific Gravity 1.009 (1.001-1.035); Urine WBC <1 /hpf (0 - 5)
[2019-11-09 06:31] LABS: Chloride 102 mmol/L (98-107); Sodium 132 mmol/L (136-145)
[2019-11-09 06:40] LABS: Alanine Aminotransferase 17 U/L (13-56); Albumin 3.7 g/dL (3.4-5.0); Alkaline Phosphatase 163 U/L (45-117); Anion Gap 9 (5-15); Aspartate Aminotransferase 15 U/L (15-37); BUN/Creatinine Ratio 28.1; Bilirubin, Total 0.4 mg/dL (0.2-1.0); Blood Urea Nitrogen 63 mg/dL (7-18); Calcium 9.7 mg/dL (8.5-10.1); Carbon Dioxide 21 mmol/L (21-32); GFR African American 28 mL/min; GFR Non-African American 23 mL/min; Glucose 114 mg/dL (74-106); INR 0.96 (0.9-1.15); Magnesium 3.3 mg/dL (1.6-2.6); Partial Thromboplastin Time 26.1 sec (23.0-31.2); Total Protein 7.7 g/dL (6.4-8.2)
[2019-11-09 06:46] LABS: Potassium 6.1 mmol/L (3.5-5.1)
[2019-11-09] MEDS ORDERED: InsuLIN REG 1unit/0.01ml Soln (100units/ml) IV ONE (07:30)
[2019-11-09] MEDS ORDERED: ALBUTEROL SULF 2.5 MG/0.5ML(0.5%) NEB SOLN NEB ONE (07:30)
[2019-11-09] MEDS ORDERED: CALCIUM GLUC 4.65meq/50ml D5AE 50 ML IV ONE (07:30)
[2019-11-09] MEDS ORDERED: SODIUM BICARBONATE 8.4% INJ 50ML SYRINGE IV ONE (07:30)
[2019-11-09] MEDS ORDERED: DEXTROSE (50%) 50ML SYRG IV ONE (07:30)
[2019-11-09] MEDS ORDERED: DOPamine 1600MCG/ML D5W 250 ML IV ONE ×2 (07:55→08:15)
[2019-11-09] MEDS ORDERED: NOREPINEPHRINE 8 MG/250ML KIT 250 ML IV ONE (08:24)
[2019-11-09] MEDS ORDERED: LORazepam 2MG/ML-1ML VIAL ONE ×2 (08:41→14:47)
[2019-11-09] MEDS ORDERED: LORazepam 2MG/ML-1ML VIAL IV ONE (08:45)
[2019-11-09] MEDS: NOREPINEPHRINE 8 MG/250ML KIT 250 ML IV SCH ×2 (08:49→09:49)
[2019-11-09] MEDS ORDERED: SODIUM CHLORIDE 0.9% 1,000 ML IV ONE (09:30)
[2019-11-09] MEDS ORDERED: NITROGLYCERIN 0.4 MG SL TAB SL PRN (13:45)
[2019-11-09] MEDS ORDERED: MORPHINE SULF INJ 2 MG/ML SYRINGE 1ML IV PRN (13:45)
[2019-11-09] MEDS: SODIUM ZIRCONIUM CYCL 10 GM PAK PO SCH ×2 (14:00→22:52)
[2019-11-09] MEDS ORDERED: DEXTROSE (50%) 50ML SYRG IV PRN (14:15)
[2019-11-09] MEDS ORDERED: ONDANSETRON HCL 4 MG/2 ML VIAL ONE (14:23)
[2019-11-09] MEDS: SODIUM CHLORIDE 0.9% 1,000 ML IV SCH ×2 (14:32→20:58)
[2019-11-09 15:00] LABS: Anion Gap 12 (5-15); Blood Urea Nitrogen 57 mg/dL (7-18); Calcium 9.3 mg/dL (8.5-10.1); Carbon Dioxide 16 mmol/L (21-32); Chloride 107 mmol/L (98-107); Glucose 181 mg/dL (74-106); Potassium 5.4 mmol/L (3.5-5.1); Sodium 135 mmol/L (136-145)
[2019-11-09 15:04] LABS: GFR African American 34 mL/min; GFR Non-African American 28 mL/min
[2019-11-09 15:09] LABS: Alcohol, Urine < 3.0 mg/dL (0-10); Amphetamine Screen, Urine NEGATIVE (NEGATIVE); Barbiturate Scree,Urine NEGATIVE (NEGATIVE); Benzodiazephine Screen, Urine NEGATIVE (NEGATIVE); Cannabinoid Screen, Urine NEGATIVE (NEGATIVE); Cocaine Screen, Urine NEGATIVE (NEGATIVE); Opiate Scree,Urine POSITIVE (NEGATIVE); Phencyclidine Screen, Urine NEGATIVE (NEGATIVE)
[2019-11-09 15:26] LABS: CRP High Sensitivity 1.57 mg/dL (< 0.3)
[2019-11-09] MEDS: SODIUM BICARBONATE 50ML VIAL 75 ML in SOD CHL 0.45% 1,000 ML IV SCH (15:45)
[2019-11-09 16:10] LABS: Creatinine, Urine 60 mg/dL (30.0-125.0); Sodium Urine 56 mmol/L (40-220)
[2019-11-09] MEDS ORDERED: GABA300C10 PO (16:13)
[2019-11-09] MEDS ORDERED: LORA0.5T20 PO (16:13)
[2019-11-09] MEDS ORDERED: QUET25TA37 PO (16:13)
[2019-11-09] MEDS ORDERED: FLUO40CA75 PO (16:13)
[2019-11-09] MEDS ORDERED: BACL10TA PO (16:13)
[2019-11-09] MEDS: LORazepam 2MG/ML-1ML VIAL IV PRN ×3 (16:15→22:50)
[2019-11-09] MEDS: ACCU-CHEK COMFORT CURVE STRIP VI SCH ×2 (17:00→22:52)
[2019-11-09] MEDS: InsuLIN REG 1unit/0.01ml Soln (100units/ml) SC SCH ×2 (17:00→22:00)
[2019-11-09 19:17] LABS: Hematocrit 28.8 % (36.0-46.0); Hemoglobin 9.5 g/dL (12.2-16.2)
[2019-11-09] MEDS: ACETAMINOPHEN 325 MG TAB PO PRN (23:38)
[2019-11-10 00:50] LABS: Hematocrit 29.1 % (36.0-46.0); Hemoglobin 9.5 g/dL (12.2-16.2)
[2019-11-10] MEDS: LORazepam 2MG/ML-1ML VIAL IV PRN ×2 (02:35→07:42)
[2019-11-10] MEDS ORDERED: TEMAZEPAM 15 MG CAP PO ONE (03:15)
[2019-11-10] MEDS ORDERED: SODIUM BICARBONATE 8.4% INJ 50ML SYRINGE ONE (03:32)
[2019-11-10] MEDS: SODIUM CHLORIDE 0.9% 1,000 ML IV SCH ×2 (03:53→10:35)
[2019-11-10] MEDS: SODIUM BICARBONATE 50ML VIAL 75 ML in SOD CHL 0.45% 1,000 ML IV SCH ×3 (03:55→23:52)
[2019-11-10] MEDS: SODIUM ZIRCONIUM CYCL 10 GM PAK PO SCH ×3 (06:28→22:00)
[2019-11-10] MEDS: ACCU-CHEK COMFORT CURVE STRIP VI SCH ×4 (06:55→22:00)
[2019-11-10] MEDS: InsuLIN REG 1unit/0.01ml Soln (100units/ml) SC SCH ×4 (06:55→22:00)
[2019-11-10 07:50] LABS: Basophils # (auto) 0 10 ^3/uL (0-0.2); Basophils % (auto) 0.4 % (0.0-2.0); Eosinophils # (auto) 0 10 ^3/uL (0-0.8); Eosinophils % (auto) 0.1 % (0.0-7.0); Hemoglobin 9.3 g/dL (12.2-16.2); Lymphocytes % (auto) 24.1 % (10.0-50.0); Mean Corpuscular Hemoglobin 32.2 pg (28.0-32.0); Mean Corpuscular Hgb Conc. 33.3 g/dL (32.0-36.0); Mean Corpuscular Volume 96.7 fL (80.0-100.0); Monocytes # (auto) 0.8 10 ^3/uL (0-1.3); Neutrophils # (auto) 2.5 10 ^3/uL (1.6-8.6); Neutrophils % (auto) 56.8 % (37.0-80.0); Platelet Count (auto) 220 10^3/uL (140-450); Red Cell Distribution Width 15.5 % (11.8-14.3); White Blood Cell 4.3 10^3/uL (4.4-10.8)
[2019-11-10 08:01] LABS: Monocytes % (auto) 18.6 % (0.0-12.0)
[2019-11-10 08:02] LABS: Albumin 3.1 g/dL (3.4-5.0); Calcium 8.7 mg/dL (8.5-10.1); Potassium 4.9 mmol/L (3.5-5.1)
[2019-11-10 08:07] LABS: BUN/Creatinine Ratio 36.5; Bilirubin, Total 0.6 mg/dL (0.2-1.0); Total Protein 6.3 g/dL (6.4-8.2)
[2019-11-10 10:30] VITALS: BP 130/80
[2019-11-10] MEDS: PANTOPRAZOLE 40 MG TAB PO SCH (10:35)
[2019-11-10] MEDS ORDERED: METOPROLOL TARTRATE 25 MG TAB PO ONE (11:00)
[2019-11-10 13:00] VITALS: BP 133/59
[2019-11-10 16:55] VITALS: BP 122/61
[2019-11-10] MEDS ORDERED: [UNRECOGNIZED DRUG - CODE] PO (17:11)
[2019-11-10] MEDS ORDERED: HALOPERIDOL LACTATE 5 MG/ML INJ VIAL IM PRN (20:45)
[2019-11-10 22:00] VITALS: BP 137/88
[2019-11-10] MEDS: METOPROLOL TARTRATE 25 MG TAB PO SCH (22:00)
[2019-11-11] VITALS (7 sets, daily range): BP systolic 121–135; BP diastolic 67–88
[2019-11-11] MEDS: SODIUM ZIRCONIUM CYCL 10 GM PAK PO SCH (06:00)
[2019-11-11] MEDS: ACCU-CHEK COMFORT CURVE STRIP VI SCH ×4 (06:01→22:11)
[2019-11-11] MEDS: InsuLIN REG 1unit/0.01ml Soln (100units/ml) SC SCH ×4 (06:31→22:00)
[2019-11-11] MEDS: METOPROLOL TARTRATE 25 MG TAB PO SCH ×2 (09:43→22:11)
[2019-11-11] MEDS: PANTOPRAZOLE 40 MG TAB PO SCH (09:43)
[2019-11-11] MEDS: SODIUM BICARBONATE 50ML VIAL 75 ML in SOD CHL 0.45% 1,000 ML IV SCH (10:22)
[2019-11-11] MEDS: chlordiazePOXIDE HCL 25 MG CAP PO PRN ×2 (12:31→20:34)
[2019-11-11] MEDS: FOLIC ACID 1 MG, MULTIPLE VITAMIN 10 ML, MAGNESIUM SULF SDV 50% 8 MEQ, THIAMINE INJ 100... INJ SCH ×5 (14:10)
[2019-11-11] MEDS: SOD CHL 0.45% 1,000 ML IV SCH (16:11)
[2019-11-11] MEDS: ACETAMINOPHEN 325 MG TAB PO PRN (16:12)
[2019-11-11] MEDS ORDERED: LORazepam 2MG/ML-1ML VIAL IV ONE (16:45)
[2019-11-11] MEDS ORDERED: HALOPERIDOL LACTATE 5 MG/ML INJ VIAL IM PRN (21:15)
[2019-11-11] MEDS: ZOLPIDEM TARTRATE 5 MG TAB PO PRN (22:33)
[2019-11-12] MEDS: LORazepam 0.5 MG TAB PO PRN ×4 (00:37→22:36)
[2019-11-12 04:46] VITALS: BP 128/73
[2019-11-12] MEDS: SOD CHL 0.45% 1,000 ML IV SCH ×2 (05:05→18:25)
[2019-11-12] MEDS: chlordiazePOXIDE HCL 25 MG CAP PO PRN ×3 (06:14→23:23)
[2019-11-12] MEDS: InsuLIN REG 1unit/0.01ml Soln (100units/ml) SC SCH ×4 (06:55→21:08)
[2019-11-12] MEDS: ACCU-CHEK COMFORT CURVE STRIP VI SCH ×4 (06:55→21:09)
[2019-11-12 08:00] VITALS: BP 145/93
[2019-11-12] MEDS: PANTOPRAZOLE 40 MG TAB PO SCH (09:21)
[2019-11-12] MEDS: METOPROLOL TARTRATE 25 MG TAB PO SCH ×2 (09:21→22:06)
[2019-11-12] MEDS: FOLIC ACID 1 MG, MULTIPLE VITAMIN 10 ML, MAGNESIUM SULF SDV 50% 8 MEQ, THIAMINE INJ 100... INJ SCH ×5 (14:19)
[2019-11-12 15:09] LABS: BUN/Creatinine Ratio 10.1; Calcium 9.1 mg/dL (8.5-10.1); Potassium 3.4 mmol/L (3.5-5.1)
[2019-11-12 17:00] VITALS: BP 142/92
[2019-11-12] MEDS: ZOLPIDEM TARTRATE 5 MG TAB PO PRN (21:12)
[2019-11-12 22:00] VITALS: BP 131/94
[2019-11-13] MEDS: METOPROLOL TARTRATE 1MG/1ML-5ML VIAL IV PRN ×2 (02:38→03:17)
[2019-11-13 04:46] VITALS: BP 136/98
[2019-11-13] MEDS: LORazepam 0.5 MG TAB PO PRN ×2 (06:03→19:49)
[2019-11-13] MEDS: ACCU-CHEK COMFORT CURVE STRIP VI SCH ×4 (06:26→21:46)
[2019-11-13] MEDS: InsuLIN REG 1unit/0.01ml Soln (100units/ml) SC SCH ×4 (06:26→21:46)
[2019-11-13] MEDS: SOD CHL 0.45% 1,000 ML IV SCH (07:39)
[2019-11-13] MEDS ORDERED: POTASSIUM CHL 20 Meq TABLET PO ONE (08:00)
[2019-11-13] MEDS: chlordiazePOXIDE HCL 25 MG CAP PO PRN (08:46)
[2019-11-13] MEDS: PANTOPRAZOLE 40 MG TAB PO SCH (08:47)
[2019-11-13 09:00] VITALS: BP 133/81
[2019-11-13] MEDS: METOPROLOL TARTRATE 25 MG TAB PO SCH ×2 (09:09→21:46)
[2019-11-13] MEDS: FOLIC ACID 1 MG, MULTIPLE VITAMIN 10 ML, MAGNESIUM SULF SDV 50% 8 MEQ, THIAMINE INJ 100... INJ SCH ×5 (11:58)
[2019-11-13 13:30] VITALS: BP 124/95
[2019-11-13] MEDS: ACETAMINOPHEN 325 MG TAB PO PRN (16:50)
[2019-11-13 17:00] VITALS: BP 125/87
[2019-11-13] MEDS: ZOLPIDEM TARTRATE 5 MG TAB PO PRN (21:46)
[2019-11-13 22:00] VITALS: BP 121/86
[2019-11-14] MEDS: SOD CHL 0.45% 1,000 ML IV SCH ×2 (00:55→10:25)
[2019-11-14] MEDS: ACETAMINOPHEN 325 MG TAB PO PRN ×2 (03:06→09:15)
[2019-11-14 05:00] VITALS: BP 120/84
[2019-11-14] MEDS: ACCU-CHEK COMFORT CURVE STRIP VI SCH ×2 (06:19→11:27)
[2019-11-14] MEDS: InsuLIN REG 1unit/0.01ml Soln (100units/ml) SC SCH ×2 (06:20→11:26)
[2019-11-14] MEDS: LORazepam 0.5 MG TAB PO PRN (07:47)
[2019-11-14 09:00] VITALS: BP 146/101
[2019-11-14] MEDS: PANTOPRAZOLE 40 MG TAB PO SCH (09:14)
[2019-11-14] MEDS: METOPROLOL TARTRATE 25 MG TAB PO SCH (09:14)
[2019-11-14 10:16] LABS: Basophils # (auto) 0 10 ^3/uL (0-0.2); Basophils % (auto) 0.2 % (0.0-2.0); Eosinophils # (auto) 0 10 ^3/uL (0-0.8); Eosinophils % (auto) 0.6 % (0.0-7.0); Hematocrit 29.5 % (36.0-46.0); Hemoglobin 9.8 g/dL (12.2-16.2); Lymphocytes # (auto) 0.9 10 ^3/uL (0.4-5.4); Lymphocytes % (auto) 16.6 % (10.0-50.0); Mean Corpuscular Hemoglobin 32.2 pg (28.0-32.0); Mean Corpuscular Hgb Conc. 33.2 g/dL (32.0-36.0); Mean Corpuscular Volume 96.9 fL (80.0-100.0); Monocytes # (auto) 0.6 10 ^3/uL (0-1.3); Monocytes % (auto) 11.6 % (0.0-12.0); Neutrophils # (auto) 3.8 10 ^3/uL (1.6-8.6); Nucleated Red Blood Cells % 0.1 %; Platelet Count (auto) 215 10^3/uL (140-450); Red Blood Cells 3.04 10^6/uL (4.0-5.20); Red Cell Distribution Width 15.7 % (11.8-14.3); White Blood Cell 5.4 10^3/uL (4.4-10.8)
[2019-11-14 10:32] LABS: Calcium 8.7 mg/dL (8.5-10.1)
[2019-11-14 10:34] LABS: BUN/Creatinine Ratio 13.3
[2019-11-14 11:03] LABS: Potassium 2.9 mmol/L (3.5-5.1)
[2019-11-14] MEDS: chlordiazePOXIDE HCL 25 MG CAP PO PRN (11:11)
[2019-11-14] MEDS ORDERED: POTASSIUM CHL 20 Meq TABLET PO ONE (11:15)
[2019-11-14] MEDS: FOLIC ACID 1 MG, MULTIPLE VITAMIN 10 ML, MAGNESIUM SULF SDV 50% 8 MEQ, THIAMINE INJ 100... INJ SCH ×5 (12:00)
[2019-11-14 14:53] VITALS: BP 135/99
== END 2019-11-14 16:30 | disposition home or self-care (01) | DRG 682 ==
LOC: ER 04:57 → OVERFLOW 04:58 → TELE-CENTR 11-10 10:01
PROVIDERS: ADMIT Internal Medicine; ATTEND Internal Medicine
DX: N17.0 Acute kidney failure with tubular necrosis (principal); I21.A1 Myocardial infarction type 2; E87.1 Hypo-osmolality and hyponatremia; E87.2 Acidosis; F10.231 Alcohol dependence with withdrawal delirium; I13.0 Hypertensive heart and chronic kidney disease with heart failure and stage 1 through stage 4 chronic kidney disease, or unspecified chronic kidney disease; I50.32 Chronic diastolic (congestive) heart failure; G93.49 Other encephalopathy; D63.1 Anemia in chronic kidney disease; E03.9 Hypothyroidism, unspecified; E11.22 Type 2 diabetes mellitus with diabetic chronic kidney disease; E86.0 Dehydration; E87.5 Hyperkalemia; F03.90 Unspecified dementia, unspecified severity, without behavioral disturbance, psychotic disturbance, mood disturbance, and anxiety; F17.200 Nicotine dependence, unspecified, uncomplicated; F41.9 Anxiety disorder, unspecified; G89.4 Chronic pain syndrome; K76.0 Fatty (change of) liver, not elsewhere classified; N18.9 Chronic kidney disease, unspecified; N20.0 Calculus of kidney; Z79.01 Long term (current) use of anticoagulants; Z82.49 Family history of ischemic heart disease and other diseases of the circulatory system; Z83.3 Family history of diabetes mellitus; Z85.42 Personal history of malignant neoplasm of other parts of uterus; Z86.718 Personal history of other venous thrombosis and embolism; Z87.442 Personal history of urinary calculi; Z90.710 Acquired absence of both cervix and uterus; Z91.19 Patient's noncompliance with other medical treatment and regimen; Z98.84 Bariatric surgery status; Z98.1 Arthrodesis status
CPT/HCPCS: 36415; 70450; 71045; 74176; 76775; 80048; 80053; 80307; 81001; 82150; 82550; 82570; 82962; 83036; 83690; 83735; 83880; 84132; 84300; 84443; 84484; 85014; 85018; 85025; 85045; 85610; 85652; 85730; 86141; 87040; 87086; 87493; 93005; 95819; G0378; J0610; J1815; J2405

== ENCOUNTER → 2020-01-12 | Outpatient (CLI) | payer OTHER ==
[~2020-01-12] MED LIST changes: +FLUO40CA75 PO; +GABA300C10 PO; +LORA0.5T20 PO; +QUET25TA37 PO; +[UNRECOGNIZED DRUG - CODE] PO
[2020-01-12 13:10] LABS: Basophils # (auto) 0 10 ^3/uL (0-0.2); Basophils % (auto) 0.5 % (0.0-2.0); Eosinophils # (auto) 0.1 10 ^3/uL (0-0.8); Eosinophils % (auto) 1.1 % (0.0-7.0); Hematocrit 34.3 % (36.0-46.0); Hemoglobin 11.3 g/dL (12.2-16.2); Lymphocytes # (auto) 1.6 10 ^3/uL (0.4-5.4); Lymphocytes % (auto) 29.4 % (10.0-50.0); Mean Corpuscular Hemoglobin 30.6 pg (28.0-32.0); Mean Corpuscular Hgb Conc. 32.9 g/dL (32.0-36.0); Monocytes # (auto) 0.6 10 ^3/uL (0-1.3); Monocytes % (auto) 9.9 % (0.0-12.0); Neutrophils # (auto) 3.3 10 ^3/uL (1.6-8.6); Neutrophils % (auto) 59.1 % (37.0-80.0); Nucleated Red Blood Cells % 0.1 %; Platelet Count (auto) 330 10^3/uL (140-450); Red Blood Cells 3.69 10^6/uL (4.0-5.20); Red Cell Distribution Width 15.3 % (11.8-14.3); White Blood Cell 5.6 10^3/uL (4.4-10.8)
[2020-01-12 13:33] LABS: Albumin 3.6 g/dL (3.4-5.0); Potassium 4.8 mmol/L (3.5-5.1)
[2020-01-12 13:37] LABS: BUN/Creatinine Ratio 24.5; Bilirubin, Total 0.3 mg/dL (0.2-1.0); Total Protein 7.1 g/dL (6.4-8.2)
== END | disposition home or self-care (01) ==
LOC: LAB 12:38
PROVIDERS: ATTEND Internal Medicine
DX: I10 Essential (primary) hypertension (principal); E03.9 Hypothyroidism, unspecified
CPT/HCPCS: 36415; 80053; 84439; 84443; 85025

== ENCOUNTER 2020-02-04 15:46 | Inpatient (IN) | payer OTHER ==
[~2020-02-04] VITALS: Ht 170.2 cm; Wt 71.1 kg
[2020-02-04] MEDS ORDERED: SODIUM CHLORIDE 0.9% 1,000 ML IV ONE (16:15)
[2020-02-04] MEDS ORDERED: LORazepam 2MG/ML-1ML VIAL IV ONE ×3 (16:30→18:30)
[2020-02-04] MEDS ORDERED: HYDROcodone-ACET 5/325MG TAB PO ONE (16:30)
[2020-02-04 17:37] LABS: Basophils # (auto) 0 10 ^3/uL (0-0.2); Basophils % (auto) 0.2 % (0.0-2.0); Eosinophils # (auto) 0 10 ^3/uL (0-0.8); Hematocrit 34.9 % (36.0-46.0); Hemoglobin 11.1 g/dL (12.2-16.2); Lymphocytes # (auto) 1.1 10 ^3/uL (0.4-5.4); Lymphocytes % (auto) 9.4 % (10.0-50.0); Mean Corpuscular Hemoglobin 29.2 pg (28.0-32.0); Mean Corpuscular Hgb Conc. 31.7 g/dL (32.0-36.0); Mean Corpuscular Volume 92.1 fL (80.0-100.0); Monocytes # (auto) 0.5 10 ^3/uL (0-1.3); Monocytes % (auto) 4.4 % (0.0-12.0); Neutrophils # (auto) 9.6 10 ^3/uL (1.6-8.6); Platelet Count (auto) 319 10^3/uL (140-450); Red Blood Cells 3.79 10^6/uL (4.0-5.20); Red Cell Distribution Width 15.5 % (11.8-14.3); White Blood Cell 11.1 10^3/uL (4.4-10.8)
[2020-02-04 17:43] LABS: Alanine Aminotransferase 26 U/L (13-56); Albumin 3.8 g/dL (3.4-5.0); Anion Gap 11 (5-15); Aspartate Aminotransferase 37 U/L (15-37); BUN/Creatinine Ratio 27.8; Blood Alcohol < 3.0 mg/dL (0-5); Blood Urea Nitrogen 65 mg/dL (7-18); Calcium 9.2 mg/dL (8.5-10.1); Carbon Dioxide 16 mmol/L (21-32); Chloride 112 mmol/L (98-107); GFR African American 27 mL/min; GFR Non-African American 22 mL/min; Glucose 110 mg/dL (74-106); Magnesium 2.8 mg/dL (1.6-2.6); Sodium 139 mmol/L (136-145)
[2020-02-04 17:46] LABS: Alkaline Phosphatase 133 U/L (45-117); Bilirubin, Total 0.6 mg/dL (0.2-1.0); Total Protein 7.9 g/dL (6.4-8.2)
[2020-02-04] MEDS ORDERED: MIDAZOLAM HCL 5 MG/ML-1ML VIAL IV ONE (21:30)
[2020-02-05] MEDS ORDERED: NITROGLYCERIN 0.4 MG SL TAB SL PRN (00:30)
[2020-02-05] MEDS ORDERED: SODIUM ZIRCONIUM CYCL 10 GM PAK PO ONE (00:30)
[2020-02-05] MEDS ORDERED: SODIUM BICARBONATE 8.4 % INJ 50ML VIAL IV ONE (00:30)
[2020-02-05] MEDS ORDERED: MORPHINE SULF INJ 2 MG/ML SYRINGE 1ML IV PRN (00:30)
[2020-02-05] MEDS ORDERED: CALCIUM GLUC 4.65meq/50ml D5AE 50 ML IV ONE (00:30)
[2020-02-05] MEDS ORDERED: ACETAMINOPHEN 325 MG TAB PO PRN (00:30)
[2020-02-05] MEDS ORDERED: DEXTROSE (50%) 50ML SYRG IV PRN (00:30)
[2020-02-05] MEDS ORDERED: ONDANSETRON HCL 4 MG/2 ML VIAL IV PRN (00:30)
[2020-02-05] MEDS ORDERED: DEXTROSE (50%) 50ML SYRG IV ONE (00:30)
[2020-02-05] MEDS ORDERED: InsuLIN REG 1unit/0.01ml Soln (100units/ml) IV ONE (00:30)
[2020-02-05 01:53] LABS: INR 0.97 (0.9-1.15); Partial Thromboplastin Time 24.8 sec (23.0-31.2)
[2020-02-05 09:11] LABS: Calcium 9.6 mg/dL (8.5-10.1); Potassium 4.6 mmol/L (3.5-5.1)
[2020-02-05 09:13] LABS: BUN/Creatinine Ratio 44.6
[2020-02-05] MEDS: ACCU-CHEK COMFORT CURVE STRIP VI SCH ×3 (09:55→17:47)
[2020-02-05] MEDS: InsuLIN REG 1unit/0.01ml Soln (100units/ml) SC SCH ×3 (09:56→18:17)
[2020-02-05] MEDS ORDERED: LORazepam 2MG/ML-1ML VIAL IV ONE (10:00)
[2020-02-05] MEDS: FLUoxetine HCL 20 MG CAP PO SCH (10:28)
[2020-02-05] MEDS: PANTOPRAZOLE 40 MG TAB PO SCH (10:37)
[2020-02-05] MEDS: DULoxetine HCL 30 MG CAP PO SCH (10:37)
[2020-02-05] MEDS: APIXABAN 2.5 MG TAB PO SCH (10:38)
[2020-02-05] MEDS: FUROSEMIDE 40 MG TAB PO SCH (10:38)
[2020-02-05] MEDS: LEVOTHYROXINE SODIUM 50 MCG TAB PO SCH (10:43)
[2020-02-05 11:40] LABS: Urine WBC None Seen /hpf (0 - 5)
[2020-02-05 11:56] LABS: Urine Bacteria NONE SEEN /hpf (None Seen); Urine Blood Negative /uL (Negative); Urine Hyaline Cast MANY /lpf (0 - 2); Urine Mucus FEW (None Seen); Urine Specific Gravity 1.017 (1.001-1.035)
[2020-02-05 12:06] LABS: Alcohol, Urine < 3.0 mg/dL (0-10); Amphetamine Screen, Urine NEGATIVE (NEGATIVE); Barbiturate Scree,Urine NEGATIVE (NEGATIVE); Benzodiazephine Screen, Urine POSITIVE (NEGATIVE); Cannabinoid Screen, Urine NEGATIVE (NEGATIVE); Cocaine Screen, Urine NEGATIVE (NEGATIVE); Opiate Scree,Urine NEGATIVE (NEGATIVE); Phencyclidine Screen, Urine NEGATIVE (NEGATIVE)
[2020-02-05] MEDS ORDERED: cefTRIAXone 1GM/50ML D5W 50 ML IV ONE (12:15)
[2020-02-05] MEDS: HALOPERIDOL LACTATE 5 MG/ML INJ VIAL IV PRN (15:49)
[2020-02-06] MEDS: APIXABAN 2.5 MG TAB PO SCH ×3 (04:25→21:53)
[2020-02-06] MEDS: ACCU-CHEK COMFORT CURVE STRIP VI SCH ×5 (04:31→21:53)
[2020-02-06] MEDS: InsuLIN REG 1unit/0.01ml Soln (100units/ml) SC SCH ×5 (04:37→21:57)
[2020-02-06] MEDS: LEVOTHYROXINE SODIUM 50 MCG TAB PO SCH (07:00)
[2020-02-06] MEDS: FLUoxetine HCL 20 MG CAP PO SCH (10:00)
[2020-02-06] MEDS: PANTOPRAZOLE 40 MG TAB PO SCH (10:00)
[2020-02-06] MEDS: DULoxetine HCL 30 MG CAP PO SCH (10:00)
[2020-02-06] MEDS: FUROSEMIDE 40 MG TAB PO SCH (10:00)
[2020-02-06 11:12] LABS: Basophils # (auto) 0 10 ^3/uL (0-0.2); Basophils % (auto) 0.1 % (0.0-2.0); Eosinophils # (auto) 0 10 ^3/uL (0-0.8); Hematocrit 35.2 % (36.0-46.0); Hemoglobin 11.4 g/dL (12.2-16.2); Lymphocytes % (auto) 8.9 % (10.0-50.0); Mean Corpuscular Hemoglobin 29.9 pg (28.0-32.0); Mean Corpuscular Hgb Conc. 32.4 g/dL (32.0-36.0); Mean Corpuscular Volume 92.2 fL (80.0-100.0); Monocytes # (auto) 0.5 10 ^3/uL (0-1.3); Monocytes % (auto) 4.8 % (0.0-12.0); Neutrophils # (auto) 9.8 10 ^3/uL (1.6-8.6); Neutrophils % (auto) 86.2 % (37.0-80.0); Nucleated Red Blood Cells % 0.1 %; Platelet Count (auto) 269 10^3/uL (140-450); Red Blood Cells 3.82 10^6/uL (4.0-5.20); Red Cell Distribution Width 16.3 % (11.8-14.3); White Blood Cell 11.4 10^3/uL (4.4-10.8)
[2020-02-06 11:26] LABS: INR 1.09 (0.9-1.15); Partial Thromboplastin Time 23.6 sec (23.0-31.2)
[2020-02-06 11:33] LABS: Albumin 3.9 g/dL (3.4-5.0); Calcium 10.9 mg/dL (8.5-10.1); Magnesium 3.2 mg/dL (1.6-2.6); Potassium 3.9 mmol/L (3.5-5.1)
[2020-02-06 11:37] LABS: BUN/Creatinine Ratio 36.4; Total Protein 8.1 g/dL (6.4-8.2)
[2020-02-06 13:00] VITALS: BP 120/81
[2020-02-06] MEDS: cefTRIAXone 1GM/50ML D5W 50 ML IV SCH (13:40)
[2020-02-06 14:11] VITALS: BP 143/89
--- NOTE | 2020-02-06 15:05 | NUR ---
PT ARRIVED TO FLOOR FROM ER AT APPROX 1230. DOES NOT ANSWER QUESTIONS. MOUTH TREMORS NOTED. PT RESTLESS, SWINGING LEGS OVER SIDE OF BED. DIFFICULT TO REDIRECT. BED ALARM IN PLACE. GEORGES GIVEN UPDATE VIA TELEPHONE.
--- NOTE | 2020-02-06 15:07 | NUR ---
URINE SAMPLE TAKEN TO LAB.
[2020-02-06] MEDS: HALOPERIDOL LACTATE 5 MG/ML INJ VIAL IV PRN (16:07)
[2020-02-06 16:54] VITALS: BP 123/76
--- NOTE | 2020-02-06 17:36 | NUR ---
PT CONTINUES TO BE HARD TO REDIRECT, SWINGING LEGS UP OVER SIDERAILS. PUTTING OXYGEN IN MOUTH, AND PULLING ON LANGFORD CATHETER. TOOK TELE BOX OFF SEVERAL TIMES. BED ALARM IN PLACE, MONITORING CLOSELY. MEDICATED WITH HALDOL X1 WITH NO EFFECT NOTED.
--- NOTE | 2020-02-06 19:45 | NUR ---
PATIENT IS NAKED UPON ENTERING THE ROOM. BED ALARM IS ON. PATIENT IS VERY RESTLESS AND CONFUSED. DOES NOT FOLLOW COMMAND. WILL KEEP AN EYE ON PATIENT.
[2020-02-06] MEDS: D5W 5% 1,000 ML IV SCH (21:52)
[2020-02-06 22:00] VITALS: BP 120/81
[2020-02-07] VITALS (10 sets, daily range): BP systolic 97–129; BP diastolic 42–89
--- NOTE | 2020-02-07 03:53 | NUR ---
PATIENT'S HEART RATE CONVERTED TO A FAST RATE OF 168 ON THE MONITOR. PATIENT IS SHAKING AND MOVING A LOT AT THIS TIME. CHECKED PATIENT'S PULSE AND RATE WAS 102 FOR THE WHOLE MINUTE. NO DISTRESS NOTED.
--- NOTE | 2020-02-07 04:00 | NUR ---
EKG DONE AND READ AFIB WITH RVR. CODE ASSIST CALLED. ICU NURSE AND GIS PROFESSOR AT THE BEDSIDE. ADA HOSPITALIST. MD AT THE BEDSIDE AND ORDERED AMIODARONE PER PROTOCOL.
--- NOTE | 2020-02-07 04:10 | NUR ---
PATIENT SPONTANEOUSLY CONVERTED BACK TO ST BY ITSELF TO 102. MADE MD AWARE. HOLD AMIODARONE. PREMIXED AMIODARONE IS WITH THE HOUSE HIGHER LEVEL TEACHING ASSISTANT AND WILL LET HIM KNOW IF THE PATIENT CONVERTS BACK TO AFIB WITH RVR. NOTED. WILL KEEP AN EYE ON PATIENT.
[2020-02-07] MEDS ORDERED: AMIODARONE HCL 150 MG in D5W 5% 100 ML IV ONE (04:30)
[2020-02-07] MEDS ORDERED: AMIODARONE HCL (50 MG/ ML) 3 ML VIAL IV ONE (04:33)
[2020-02-07] MEDS ORDERED: AMIODARONE 450mg/250ml AE 250 ML IV ONE (04:33)
[2020-02-07] MEDS ORDERED: AMIODARONE 450mg/250ml AE 250 ML IV SCH (04:45)
[2020-02-07 06:23] LABS: Basophils # (auto) 0 10 ^3/uL (0-0.2); Basophils % (auto) 0.1 % (0.0-2.0); Eosinophils # (auto) 0 10 ^3/uL (0-0.8); Hematocrit 38.2 % (36.0-46.0); Hemoglobin 12.2 g/dL (12.2-16.2); Lymphocytes # (auto) 1.2 10 ^3/uL (0.4-5.4); Lymphocytes % (auto) 9.4 % (10.0-50.0); Mean Corpuscular Hemoglobin 29.9 pg (28.0-32.0); Mean Corpuscular Hgb Conc. 31.8 g/dL (32.0-36.0); Monocytes # (auto) 1.3 10 ^3/uL (0-1.3); Monocytes % (auto) 10.2 % (0.0-12.0); Neutrophils # (auto) 10.5 10 ^3/uL (1.6-8.6); Neutrophils % (auto) 80.3 % (37.0-80.0); Nucleated Red Blood Cells % 0.2 %; Platelet Count (auto) 260 10^3/uL (140-450); Red Blood Cells 4.06 10^6/uL (4.0-5.20); Red Cell Distribution Width 16.9 % (11.8-14.3); White Blood Cell 13.1 10^3/uL (4.4-10.8)
[2020-02-07] MEDS: InsuLIN REG 1unit/0.01ml Soln (100units/ml) SC SCH ×4 (06:23→22:00)
[2020-02-07] MEDS: ACCU-CHEK COMFORT CURVE STRIP VI SCH ×4 (06:23→22:00)
[2020-02-07] MEDS: D5W 5% 1,000 ML IV SCH ×3 (06:23→17:09)
[2020-02-07 06:27] LABS: Potassium 3.6 mmol/L (3.5-5.1)
[2020-02-07 06:33] LABS: Albumin 3.9 g/dL (3.4-5.0); BUN/Creatinine Ratio 34.7; Bilirubin, Total 0.7 mg/dL (0.2-1.0); Calcium 10.8 mg/dL (8.5-10.1); Magnesium 3.4 mg/dL (1.6-2.6); Phosphorus 4.6 mg/dL (2.5-4.90); Total Protein 8.4 g/dL (6.4-8.2)
--- NOTE | 2020-02-07 07:33 | NUR ---
ENDORSED TO AM SHIFT RN, RE: NEW ONSET OF AFIB AND AND NA OF 162. NOTED.
[2020-02-07] MEDS: cefTRIAXone 1GM/50ML D5W 50 ML IV SCH (09:02)
[2020-02-07] MEDS: PANTOPRAZOLE 40 MG TAB PO SCH (09:02)
--- NOTE | 2020-02-07 09:18 | NUR ---
PT HEART RATE IN 200'S. EKG DONE, PER TELE MONITOR PT IN AFIB WITH RVR. DR SADA CABALLERO, AWARE. AMIODORONE DRIP INITIATED PER PROTOCOL. MONITORING PT CLOSELY.
[2020-02-07] MEDS ORDERED: ENOXAPARIN SOD 30 MG/0.3 ML SYRINGE SC SCH (10:00)
[2020-02-07] MEDS ORDERED: ENOXAPARIN SOD 40 MG/0.4 ML SYRINGE SC SCH (10:00)
[2020-02-07 10:05] LABS: Urine Bacteria NONE SEEN /hpf (None Seen); Urine Blood 3+ /uL (Negative); Urine Hyaline Cast MOD /lpf (0 - 2); Urine Mucus FEW (None Seen); Urine Specific Gravity 1.022 (1.001-1.035); Urine WBC 26 /hpf (0 - 5)
[2020-02-07 10:18] LABS: Creatinine, Urine 217 mg/dL (30.0-125.0); Sodium Urine 16 mmol/L (40-220)
[2020-02-07] MEDS: AMIODARONE 450mg/250ml AE 250 ML IV SCH ×2 (10:45→17:21)
--- NOTE | 2020-02-07 12:40 | NUR ---
DR TOMLIN AT BEDSIDE APPROX. 1000.
--- NOTE | 2020-02-07 15:22 | NUR ---
Assessment Patient is a 64-year-old female who is confused. Assessment was completed with patient James . Prior to admission patient reside with James. Per James on 01/31/20 patient mental status decline and patient was unable to functioned independently and needed assistance with her ADLs. Advised James there is a social service consult regarding him not being able to care for patient and bringing her to the ER. Per James he brought her to the hospital due to patient's conditioning declining. Patient has a walker for home use. Per James he is willing to care for his but will need more assistance. Provided James with resources for caregivers. James is considering hospice but will like doctor to speak to him in regards of hospice qualification. Informed James will inform MD to re-evaluate patient. Informed James he has the right to participate in all discharge planning. Patient does not have an advance directive. James verbalize understanding. Addendum: 02/07/20 at 1525 by BULL CULP Amended: Links added.
[2020-02-07] MEDS ORDERED: METOPROLOL SUCCINATE XL 50 MG TAB PO ONE (17:15)
[2020-02-07] MEDS: D5W/SOD CHL 0.45% 1,000 ML IV SCH ×2 (17:27→23:55)
--- NOTE | 2020-02-07 21:15 | NUR ---
PT TO CT.
--- NOTE | 2020-02-07 21:30 | NUR ---
PT BACK FROM CT SCAN.
[2020-02-07] MEDS: APIXABAN 2.5 MG TAB PO SCH (22:38)
--- NOTE | 2020-02-08 06:00 | NUR ---
LEFT ARM IV INFILTRATED AND REMOVED;4 ATTEMPTS WITH NO ACCESS OBTAINED.WILL INFORM DAYSHIFT DEE LEGER PT REALLY NEEDS A PICC LINE CONSULTATION.
[2020-02-08] MEDS: D5W/SOD CHL 0.45% 1,000 ML IV SCH (06:35)
[2020-02-08] MEDS: InsuLIN REG 1unit/0.01ml Soln (100units/ml) SC SCH ×4 (07:00→21:47)
[2020-02-08] MEDS: ACCU-CHEK COMFORT CURVE STRIP VI SCH ×4 (07:21→21:43)
[2020-02-08 09:00] VITALS: BP 108/49
[2020-02-08] MEDS: cefTRIAXone 1GM/50ML D5W 50 ML IV SCH (09:00)
[2020-02-08] MEDS: PANTOPRAZOLE 40 MG TAB PO SCH (09:45)
[2020-02-08] MEDS: METOPROLOL SUCCINATE XL 50 MG TAB PO SCH (09:45)
[2020-02-08] MEDS: APIXABAN 2.5 MG TAB PO SCH ×2 (09:45→21:43)
[2020-02-08] MEDS ORDERED: AMIODARONE HCL 200 MG TAB PO ONE (10:45)
[2020-02-08] MEDS: D5W 5% 1,000 ML IV SCH ×2 (11:00→17:18)
--- NOTE | 2020-02-08 11:07 | NUR ---
DR SADA FOX. AMIODORONE DRIP D/C'D, STARTED PT ON AMIODORONE PO. PT OOB TO CHAIR WITH PHYSICAL THERAPY. 1:1 SITTER REMAINS AT BEDSIDE.
[2020-02-08 11:51] LABS: Basophils # (auto) 0 10 ^3/uL (0-0.2); Basophils % (auto) 0.2 % (0.0-2.0); Eosinophils # (auto) 0 10 ^3/uL (0-0.8); Eosinophils % (auto) 0.1 % (0.0-7.0); Hematocrit 36.5 % (36.0-46.0); Hemoglobin 11.4 g/dL (12.2-16.2); Lymphocytes # (auto) 1.7 10 ^3/uL (0.4-5.4); Lymphocytes % (auto) 21.3 % (10.0-50.0); Mean Corpuscular Hemoglobin 30.5 pg (28.0-32.0); Mean Corpuscular Hgb Conc. 31.3 g/dL (32.0-36.0); Mean Corpuscular Volume 97.5 fL (80.0-100.0); Monocytes # (auto) 0.7 10 ^3/uL (0-1.3); Monocytes % (auto) 9.2 % (0.0-12.0); Neutrophils # (auto) 5.5 10 ^3/uL (1.6-8.6); Neutrophils % (auto) 69.2 % (37.0-80.0); Nucleated Red Blood Cells % 0.5 %; Platelet Count (auto) 205 10^3/uL (140-450); Red Blood Cells 3.74 10^6/uL (4.0-5.20); Red Cell Distribution Width 16.9 % (11.8-14.3); White Blood Cell 7.9 10^3/uL (4.4-10.8)
[2020-02-08 12:22] LABS: Calcium 9.7 mg/dL (8.5-10.1); Potassium 3.3 mmol/L (3.5-5.1)
[2020-02-08 12:23] LABS: BUN/Creatinine Ratio 36.6
--- NOTE | 2020-02-08 13:56 | NUR ---
SKIN TEAR TO RIGHT ARM. GAUZE AND WRAP APPLIED.
--- NOTE | 2020-02-08 14:05 | NUR ---
POTASSIUM 3.3, SODIUM 146. DR STEINBERG NOTIFIED.
[2020-02-08] MEDS ORDERED: POTASSIUM CHL 20 Meq TABLET PO ONE (14:15)
--- NOTE | 2020-02-08 14:25 | NUR ---
Nutrition Assessment Note please see attached link for complete assessment Est energy needs BW 68 [id number] kcal (25-30 kcal/kg BW ) Est protein needs 54-68 g (0.8-1.0g/kg BW r/t elev RFT) Will monitor and reassess prn. Addendum: 02/08/20 at [address] Amended: Links added.
--- NOTE | 2020-02-08 14:42 | NUR ---
PER MRI, PT HAS NEUROSTIMULATOR, SO UNABLE TO DO MRA NECK. MESSAGE LEFT FOR DR CORCORAN AT HIS OFFICE.
[2020-02-08 17:00] VITALS: BP 94/64
--- NOTE | 2020-02-08 19:30 | NUR ---
Opening Shift Note Assumed care of patient, awake and alert. No S/S of distress/SOB or pain. Insructed on POC and to callfor assist PRN, will continue to monitor for changes Q1hr and PRN. floor attendant at bedside for patient safety. Fall and safety precautions in place. Call light within reach.
[2020-02-08] MEDS: AMIODARONE HCL 200 MG TAB PO SCH (21:43)
[2020-02-08 22:00] VITALS: BP 97/64
[2020-02-09] MEDS: D5W 5% 1,000 ML IV SCH ×3 (02:16→10:30)
[2020-02-09 06:35] LABS: Basophils # (auto) 0 10 ^3/uL (0-0.2); Basophils % (auto) 0.2 % (0.0-2.0); Eosinophils # (auto) 0 10 ^3/uL (0-0.8); Eosinophils % (auto) 0.4 % (0.0-7.0); Hematocrit 34.5 % (36.0-46.0); Lymphocytes # (auto) 1.5 10 ^3/uL (0.4-5.4); Lymphocytes % (auto) 24.7 % (10.0-50.0); Mean Corpuscular Hemoglobin 29.8 pg (28.0-32.0); Mean Corpuscular Hgb Conc. 31.9 g/dL (32.0-36.0); Mean Corpuscular Volume 93.3 fL (80.0-100.0); Monocytes # (auto) 0.7 10 ^3/uL (0-1.3); Monocytes % (auto) 11.8 % (0.0-12.0); Neutrophils # (auto) 3.9 10 ^3/uL (1.6-8.6); Neutrophils % (auto) 62.9 % (37.0-80.0); Nucleated Red Blood Cells % 0.3 %; Platelet Count (auto) 183 10^3/uL (140-450); Red Cell Distribution Width 15.8 % (11.8-14.3); White Blood Cell 6.3 10^3/uL (4.4-10.8)
[2020-02-09] MEDS: ACCU-CHEK COMFORT CURVE STRIP VI SCH ×4 (06:35→21:26)
[2020-02-09] MEDS: InsuLIN REG 1unit/0.01ml Soln (100units/ml) SC SCH ×4 (06:36→21:18)
[2020-02-09 06:47] LABS: Potassium 3.4 mmol/L (3.5-5.1)
[2020-02-09 07:01] LABS: BUN/Creatinine Ratio 32.8; Calcium 9.5 mg/dL (8.5-10.1)
--- NOTE | 2020-02-09 07:10 | NUR ---
OPENING SHIFT NOTE Assumed care of patient from night shift supervisor RN. Sitter at bedside. Patient is alert and oriented x3, patient has periods of confusion but is easy to reorient, no complaints of pain. She was updated on the plan of care and verbalized understanding. Bed is locked, in the, lowest position, side rails are up x2 and call light is in reach. She was encouraged to call for assistance as needed.
--- NOTE | 2020-02-09 08:25 | NUR ---
D/C Planning Received a call from patient James advising me to contact [facility] or [facility] for evaluation. faxed clinical information to both agencies. Per representatives with both agencies they are unable to accommodate patient needs. Contact patient James advising him if he would like me to contact a different hospice. James did not have another preference and ask to contact any hospice who can accept patient. Faxed clinical information to [facility]. Per Alisia with [facility] hosp[facility] patient has been accepted and service to start upon d/c day. Informed RN mauri Reilly who advised me MD will discharge in the morning. Contact Alisia with [facility] to advised her discharge is pending. Transportation will be arranged by [facility].
[2020-02-09] MEDS ORDERED: POTASSIUM CHL 20MEQ/100ML 100 ML IV ONE (08:30)
[2020-02-09] MEDS: cefTRIAXone 1GM/50ML D5W 50 ML IV SCH (08:54)
[2020-02-09 09:00] VITALS: BP 80/48
--- NOTE | 2020-02-09 09:50 | NUR ---
SADA AT BEDSIDE Updated on the patient status, the plan of care was discussed with the patient and she verbalized understanding. Per MD patient cannot have any psych medications or sleeping medications, patient to be discharged tomorrow on hospice.
[2020-02-09] MEDS: METOPROLOL SUCCINATE XL 50 MG TAB PO SCH (10:17)
[2020-02-09] MEDS: APIXABAN 2.5 MG TAB PO SCH ×2 (10:17→21:26)
[2020-02-09] MEDS: AMIODARONE HCL 200 MG TAB PO SCH ×2 (10:17→21:25)
[2020-02-09] MEDS: PANTOPRAZOLE 40 MG TAB PO SCH (10:17)
--- NOTE | 2020-02-09 10:20 | NUR ---
LEELA AT BEDSIDE to discuss hospice with the patient. No new orders received.
--- NOTE | 2020-02-09 10:25 | NUR ---
IDRIS AT BEDSIDE updated on the patient status, plan of care was discussed with the patient and she verbalized understanding. New orders to decrease D5w to 50ml/hr, order read back and verified.
--- NOTE | 2020-02-09 12:10 | NUR ---
COVID SWAB WALKED TO LAB.
[2020-02-09 12:42] VITALS: BP 95/61
--- NOTE | 2020-02-09 16:46 | NUR ---
PATIENT IS POSITIVE FOR COVID. ORE WASHER VALERIE AWARE. WILL NOTIFY WATER TENDER AND MD.
--- NOTE | 2020-02-09 16:50 | NUR ---
CALLED SADA to inform MD that patient is Covid positive, no new orders.
[2020-02-09 16:57] VITALS: BP 108/68
--- NOTE | 2020-02-09 18:30 | NUR ---
PATIENT TRANSFERRED TO ROOM 246B Report given to DEE Flaherty. No signs of distress noted on departure.
--- NOTE | 2020-02-09 19:24 | NUR ---
Opening Shift Note Assumed care of patient, awake and alert x 3. No S/S of distress/SOB or pain. Bed is in lowest position and locked. Call light within reach. Board updated. Tele box number matches monitor and leads are in correct placement. Sitter at bedside. Instructed on POC and to call for assist PRN, will continue to monitor for changes Q1hr and PRN.
--- NOTE | 2020-02-09 20:26 | NUR ---
Patient transferred to room 251B
[2020-02-09 21:00] VITALS: BP 111/69
--- NOTE | 2020-02-10 02:06 | NUR ---
Paged hospitalist to notify of pain in lower back, currently 9 out of 10. Patient takes OxyContin/acetaminophen 2/5/300 mg PO TID PRN chronic back pain at home. She also states Morphine has helped her pain in the past.
[2020-02-10] MEDS: HALOPERIDOL LACTATE 5 MG/ML INJ VIAL IV PRN (04:33)
--- NOTE | 2020-02-10 04:33 | NUR ---
Patient alert to self only and is agitated, throwing punches and kicking staff. Patient thinks she is at home and that we are holding her captive. She keeps trying to leave to go see "James." Attempted to reorient by patient tried to leave room and push aside staff. I gave Haldol 2.5 mg IM in left deltoid. Patient sitting at edge of bed arguing with staff.
[2020-02-10] MEDS: D5W 5% 1,000 ML IV SCH (06:26)
[2020-02-10] MEDS: ACCU-CHEK COMFORT CURVE STRIP VI SCH ×3 (06:26→16:48)
[2020-02-10] MEDS: InsuLIN REG 1unit/0.01ml Soln (100units/ml) SC SCH ×3 (06:27→16:47)
--- NOTE | 2020-02-10 07:20 | NUR ---
Opening Shift Note Assumed care of patient, AOX1 to self. No S/S of distress/SOB or pain. Safety measures in place, bed locked in lowest position, call light within reach, seizure precautions in place. Instructed on POC and to call for assist PRN, will continue to monitor for changes Q1hr and PRN.
[2020-02-10 09:00] VITALS: BP 113/78
[2020-02-10] MEDS: cefTRIAXone 1GM/50ML D5W 50 ML IV SCH (09:33)
[2020-02-10] MEDS: APIXABAN 2.5 MG TAB PO SCH (09:34)
[2020-02-10] MEDS: AMIODARONE HCL 200 MG TAB PO SCH (09:34)
[2020-02-10] MEDS: PANTOPRAZOLE 40 MG TAB PO SCH (09:34)
[2020-02-10] MEDS: METOPROLOL SUCCINATE XL 50 MG TAB PO SCH (09:35)
[2020-02-10 10:53] LABS: Calcium 10.1 mg/dL (8.5-10.1); Potassium 3.7 mmol/L (3.5-5.1)
[2020-02-10 10:56] LABS: BUN/Creatinine Ratio 21.1
--- NOTE | 2020-02-10 12:34 | NUR ---
Doctor at bedside Dr. Solano updating patient on POC and this RN. New orders received, will carry out.
[2020-02-10] MEDS ORDERED: DOXY-332 PO (12:45)
--- NOTE | 2020-02-10 12:45 | NUR ---
Family updated Dr. Cali called and updated patients James on the plan of care. Patient to discharge home on hospice today. All questions and concerns addressed. Will continue to monitor Q1 hour and PRN.
[2020-02-10 13:00] VITALS: BP 117/81
[2020-02-10 13:04] VITALS: BP 113/78
--- NOTE | 2020-02-10 13:40 | NUR ---
De Leon catheter dc'd Order to discontinue de leon catheter. De Leon dc'd with clean technique following deflation of balloon. Patient tolerated well with no complaints of pain. Continue care.
--- NOTE | 2020-02-10 13:50 | NUR ---
Wound photos Patient to be discharged to home hospice, took DC wound photos.
--- NOTE | 2020-02-10 13:55 | NUR ---
Patient able to use commode to urinate post Randolph removal.
--- NOTE | 2020-02-10 14:20 | NUR ---
Per [facility], [facility] will be providing transport to home hospice. Estimated cotton picker operator time is 8:00 PM.
--- NOTE | 2020-02-10 17:25 | NUR ---
Per transportation, [facility] running late, estimated roll picker time 8:45 PM.
--- NOTE | 2020-02-10 19:11 | NUR ---
Closing note Endorsed care to Skyla RN. Discharge instructions given to patient. Patient to DC home on hospice with [facility]. Awaiting worm picker by Alisha, estimated arrival 8:45 PM. Patient has no signs of distress at this moment.
--- NOTE | 2020-02-10 21:29 | NUR ---
FAMILY CONTACT Spoke with patient's , James. Informed him that [facility] transportation has arrived and will be transporting patient home at this time.
--- NOTE | 2020-02-10 21:30 | NUR ---
DISCHARGE Patient discharged home to hospice care via [facility] transportation. All questions answered. Patient is in no distress at this time. All discharge paperwork with patient. No personal effects. IV and telemetry box previously removed by day shift RN. Identification bracelet removed at this time.
== END 2020-02-10 21:26 | disposition hospice, home (50) | DRG 91 ==
LOC: ER 15:46 → TELE 15:47 → TELE-WESTW 02-06 12:38 → TELE-EAST 02-09 18:43 → EAST 02-09 20:15
PROVIDERS: ADMIT Nurse Practitioner; ATTEND Internal Medicine
DX: G92 Toxic encephalopathy (principal); N17.0 Acute kidney failure with tubular necrosis; U07.1 COVID-19; N39.0 Urinary tract infection, site not specified; E87.0 Hyperosmolality and hypernatremia; E87.1 Hypo-osmolality and hyponatremia; E87.5 Hyperkalemia; N18.9 Chronic kidney disease, unspecified; D63.8 Anemia in other chronic diseases classified elsewhere; E11.22 Type 2 diabetes mellitus with diabetic chronic kidney disease; E03.9 Hypothyroidism, unspecified; E86.0 Dehydration; E86.1 Hypovolemia; E87.6 Hypokalemia; G30.9 Alzheimer's disease, unspecified; F02.80 Dementia in other diseases classified elsewhere, unspecified severity, without behavioral disturbance, psychotic disturbance, mood disturbance, and anxiety; G89.29 Other chronic pain; G90.2 Horner's syndrome; I12.9 Hypertensive chronic kidney disease with stage 1 through stage 4 chronic kidney disease, or unspecified chronic kidney disease; Z79.01 Long term (current) use of anticoagulants; Z82.49 Family history of ischemic heart disease and other diseases of the circulatory system; Z83.3 Family history of diabetes mellitus; Z85.42 Personal history of malignant neoplasm of other parts of uterus; Z86.718 Personal history of other venous thrombosis and embolism; Z91.81 History of falling; Z98.1 Arthrodesis status; Z98.84 Bariatric surgery status; Z90.710 Acquired absence of both cervix and uterus; I48.91 Unspecified atrial fibrillation; R80.9 Proteinuria, unspecified; F41.9 Anxiety disorder, unspecified; M54.5 Low back pain
CPT/HCPCS: 36415; 70450; 71045; 71250; 72125; 80048; 80053; 80307; 80320; 81001; 82570; 82962; 83735; 83880; 83930; 83935; 84100; 84132; 84300; 84443; 84484; 85025; 85610; 85730; 87086; 97116; 97163; 97530; G0378; J0610; J0696; J1815; J2250; J3480; J7060